=== PATIENT | male | born 1965 | race Caucasian/White ===

== ENCOUNTER 2020-04-25 11:32 | Inpatient (IN) ==
[2020-04-28] MEDS ORDERED: SOD CHLORIDE IV SCH (01:30)
[2020-04-28] MEDS ORDERED: VANCOMYCIN IV SCH (01:30)
[2020-04-28] MEDS ORDERED: [UNRECOGNIZED DRUG - OTHER] IV SCH (01:30)
[2020-04-28] MEDS ORDERED: SODIUM CHLORIDE 0.9% IVPB SCH (04:00)
[2020-04-28] MEDS ORDERED: VANCOMYCIN IVPB SCH (04:00)
[2020-04-28 07:15] LABS: Basophils # 0.1 K/mcL (0.0-0.2); Basophils % 0.5 %; Eosinophils # 0.8 K/mcL (0.0-0.6); Eosinophils % 7.1 %; Hematocrit 34.6 % (37.5-50.1); Hemoglobin 10.8 g/dL (12.9-16.9); Immature Granulocytes % 0.5 % (0-4); Lymphocytes # 1.4 K/mcL (0.6-4.6); Lymphocytes % 12.5 %; Mean Corpuscular HGB Conc 31.2 g/dL (31.6-35.5); Mean Corpuscular Hemoglobin 26.9 pg (28.0-33.3); Mean Corpuscular Volume 86.3 fL (83.0-100.0); Mean Platelet Volume 10.6 fL (9.4-12.4); Monocytes # 0.6 K/mcL (0.0-1.3); Monocytes % 5.8 %; Neutrophils # 7.9 K/mcL (1.6-8.9); Platelet Count 202 K/mcL (140-400); Red Blood Count 4.01 M/mcL (4.19-5.50); Red Cell Distribution Width 16.5 % (11.5-14.5); Segmented Neutrophils % 73.6 %; White Blood Count 10.8 K/mcL (4.3-11.1)
[2020-04-28 07:28] LABS: BUN/Creatinine Ratio 18 (6-26); Blood Urea Nitrogen 12 mg/dL (6-20); Carbon Dioxide 28 mEq/L (23-29); Chloride 103 mEq/L (98-107); Glucose 105 mg/dL (70-105); Osmolality,Calculated 284 (280-300); Potassium 3.3 mEq/L (3.5-5.1); Sodium 137 mEq/L (136-145); eGFR For African Americans > 60 (> 60); eGFR For Non-African Americans > 60 (> 60)
[2020-04-28] MEDS: amLODIPine 5 MG TABLET PO SCH (09:22)
[2020-04-28] MEDS ORDERED: Sennosides/Docusate Sodium TABLET PO PRN (10:55)
[2020-04-28] MEDS: Gabapentin 300 MG CAPSULE PO SCH ×2 (14:52→20:19)
[2020-04-28] MEDS: Vancomycin 1,750 MG/517.5 ML IV.SOLN IVPB SCH (16:00)
[2020-04-28] MEDS ORDERED: Saliva Stimulant 44.3ml BOTTLE PO PRN (16:03)
[2020-04-28] MEDS ORDERED: Ipratropium/Albuterol Neb 3 ML IH PRN (16:05)
[2020-04-29] MEDS: Vancomycin 1,750 MG/517.5 ML IV.SOLN IVPB SCH ×2 (04:13→16:01)
[2020-04-29 04:49] LABS: Hematocrit 34.1 % (37.5-50.1); Hemoglobin 10.9 g/dL (12.9-16.9); Mean Corpuscular Hemoglobin 27.7 pg (28.0-33.3); Mean Corpuscular Volume 86.8 fL (83.0-100.0); Platelet Count 187 K/mcL (140-400); Red Blood Count 3.93 M/mcL (4.19-5.50); Red Cell Distribution Width 16.5 % (11.5-14.5); White Blood Count 10.9 K/mcL (4.3-11.1)
[2020-04-29] MEDS: *HR* Enoxaparin 40 MG/0.4 ML SYRINGE SQ SCH (05:04)
[2020-04-29] MEDS ORDERED: *HR* Enoxaparin 30 MG/0.3 ML SYRINGE SQ SCH (06:00)
[2020-04-29 07:00] LABS: Alanine Aminotransferase 27 Units/L (7-52); Albumin 2.6 g/dL (3.5-5.7); Albumin/Globulin Ratio 0.9 (1.1-2.2); Alkaline Phosphatase 68 Units/L (34-104); Aspartate Amino Transferase 11 Units/L (13-39); BUN/Creatinine Ratio 17 (6-26); Bilirubin,Total 0.7 mg/dL (0.3-1.0); Blood Urea Nitrogen 10 mg/dL (6-20); Calcium 8.1 mg/dL (8.6-10.3); Carbon Dioxide 27 mEq/L (23-29); Chloride 103 mEq/L (98-107); Globulin 2.8 g/dL (2.4-3.5); Glucose 104 mg/dL (70-105); Magnesium 1.8 mg/dL (1.6-2.6); Osmolality,Calculated 285 (280-300); Phosphorous 3.4 mg/dL (2.7-4.5); Potassium 3.8 mEq/L (3.5-5.1); Sodium 138 mEq/L (136-145); Total Protein 5.4 g/dL (6.4-8.9); eGFR For African Americans > 60 (> 60); eGFR For Non-African Americans > 60 (> 60)
[2020-04-29] MEDS: amLODIPine 5 MG TABLET PO SCH (09:34)
[2020-04-29] MEDS: Gabapentin 300 MG CAPSULE PO SCH ×3 (09:34→20:51)
[2020-04-29 09:48] LABS: % Iron Saturation 10 % (20-55); Iron 17 mcg/dL (65-175); Transferrin 118 mg/dL (203-362)
[2020-04-29 13:44] LABS: Vitamin B12 239 pg/mL (250-1100)
[2020-04-29 13:48] LABS: Vitamin D 25 Hydroxy 12 ng/mL (30-80)
[2020-04-30] MEDS: Vancomycin 1,750 MG/517.5 ML IV.SOLN IVPB SCH ×2 (04:02→15:43)
[2020-04-30] MEDS: *HR* Enoxaparin 40 MG/0.4 ML SYRINGE SQ SCH (06:24)
[2020-04-30] MEDS: Gabapentin 300 MG CAPSULE PO SCH ×3 (08:44→20:05)
[2020-04-30] MEDS: amLODIPine 5 MG TABLET PO SCH (08:44)
[2020-04-30 13:35] LABS: Hematocrit RBC Folate 34.1 %
[2020-05-01] MEDS: Vancomycin 1,750 MG/517.5 ML IV.SOLN IVPB SCH ×2 (03:08→16:10)
[2020-05-01] MEDS: *HR* Enoxaparin 40 MG/0.4 ML SYRINGE SQ SCH (05:26)
[2020-05-01] MEDS: amLODIPine 5 MG TABLET PO SCH (08:26)
[2020-05-01] MEDS: Gabapentin 300 MG CAPSULE PO SCH ×3 (08:26→19:56)
[2020-05-01] MEDS: Acetaminophen 325 MG TABLET PO PRN (19:56)
[2020-05-01] MEDS ORDERED: Melatonin 3 MG TABLET PO ONE (20:37)
[2020-05-02] MEDS: *HR* Enoxaparin 40 MG/0.4 ML SYRINGE SQ SCH (05:55)
[2020-05-02] MEDS: amLODIPine 5 MG TABLET PO SCH (08:56)
[2020-05-02] MEDS: Gabapentin 300 MG CAPSULE PO SCH ×3 (08:56→19:46)
[2020-05-02] MEDS: Acetaminophen 325 MG TABLET PO PRN (19:41)
[2020-05-03] MEDS: *HR* Enoxaparin 40 MG/0.4 ML SYRINGE SQ SCH (04:50)
[2020-05-03] MEDS: amLODIPine 5 MG TABLET PO SCH (09:35)
[2020-05-03] MEDS: Gabapentin 300 MG CAPSULE PO SCH ×3 (09:35→20:29)
[2020-05-03] MEDS: Acetaminophen 325 MG TABLET PO PRN ×2 (13:00→20:29)
[2020-05-03] MEDS: Furosemide 40 MG TABLET PO SCH (17:23)
[2020-05-03] MEDS: Chlorhexidine Rinse 15 ML MOUTHWASH MM SCH ×2 (17:52→20:31)
[2020-05-04] MEDS: Acetaminophen 325 MG TABLET PO PRN ×2 (04:57→20:08)
[2020-05-04] MEDS: *HR* Enoxaparin 40 MG/0.4 ML SYRINGE SQ SCH (06:13)
[2020-05-04] MEDS: Furosemide 40 MG TABLET PO SCH (09:47)
[2020-05-04] MEDS: amLODIPine 5 MG TABLET PO SCH (09:47)
[2020-05-04] MEDS: Chlorhexidine Rinse 15 ML MOUTHWASH MM SCH ×2 (09:47→20:08)
[2020-05-04] MEDS: Gabapentin 300 MG CAPSULE PO SCH ×3 (09:47→20:08)
[2020-05-05] MEDS: *HR* Enoxaparin 40 MG/0.4 ML SYRINGE SQ SCH (05:55)
[2020-05-05 07:33] VITALS: BP 125/72
[2020-05-05] MEDS: Furosemide 40 MG TABLET PO SCH (10:16)
[2020-05-05] MEDS: Gabapentin 300 MG CAPSULE PO SCH (10:16)
[2020-05-05] MEDS: Chlorhexidine Rinse 15 ML MOUTHWASH MM SCH (10:16)
[2020-05-05] MEDS: amLODIPine 5 MG TABLET PO SCH (10:16)
== END 2020-05-05 14:52 | disposition home or self-care (01) | DRG 945 ==
LOC: INPPIK 04-28 02:27
PROVIDERS: ADMIT Family Medicine; ATTEND Family Medicine

== ENCOUNTER 2020-12-17 23:23 | Inpatient (IN) ==
[2020-12-18] MEDS ORDERED: Acetaminophen 325 MG TABLET PO PRN (14:26)
[2020-12-18] MEDS ORDERED: Ondansetron ODT 4 MG TAB.RAPDIS SL PRN (14:26)
[2020-12-18] MEDS ORDERED: Ipratropium/Albuterol Neb 3 ML IH PRN (14:31)
[2020-12-18] MEDS: *HR* OxyCODONE Immed Rel 5 MG TABLET PO PRN (15:57)
[2020-12-18] MEDS: Gabapentin 300 MG CAPSULE PO SCH ×2 (15:58→21:37)
[2020-12-18] MEDS: Bumetanide 1 MG TABLET PO SCH (15:58)
[2020-12-18] MEDS: Sennosides/Docusate Sodium TABLET PO SCH (21:37)
[2020-12-18] MEDS: Famotidine 20 MG TABLET PO SCH (21:37)
[2020-12-18] MEDS: *HR* Heparin 5,000 UNIT/ML VIAL SQ SCH (21:48)
[2020-12-19] MEDS: *HR* Heparin 5,000 UNIT/ML VIAL SQ SCH ×3 (05:57→20:58)
[2020-12-19 06:00] LABS: Basophils # 0.1 K/mcL (0.0-0.2); Eosinophils # 0.4 K/mcL (0.0-0.6); Eosinophils % 2.9 %; Hemoglobin 15.1 g/dL (12.9-16.9); Lymphocytes % 22.1 %; Mean Corpuscular HGB Conc 32.1 g/dL (31.6-35.5); Mean Corpuscular Volume 87.2 fL (83.0-100.0); Mean Platelet Volume 10.7 fL (9.4-12.4); Monocytes % 8.1 %; Neutrophils # 7.9 K/mcL (1.6-8.9); Platelet Count 305 K/mcL (140-400); Red Blood Count 5.39 M/mcL (4.19-5.50); Red Cell Distribution Width 17.2 % (11.5-14.5); Segmented Neutrophils % 63.9 %; White Blood Count 12.4 K/mcL (4.3-11.1)
[2020-12-19 06:04] LABS: Lymphocytes # 2.7 K/mcL (0.6-4.6)
[2020-12-19 06:45] LABS: BUN/Creatinine Ratio 22 (6-26); Blood Urea Nitrogen 17 mg/dL (6-20); Calcium 9.5 mg/dL (8.6-10.3); Carbon Dioxide 27 mEq/L (23-29); Chloride 102 mEq/L (98-107); Glucose 100 mg/dL (70-105); Osmolality,Calculated 288 (280-300); Potassium 4.3 mEq/L (3.5-5.1); Sodium 138 mEq/L (136-145); eGFR For African Americans > 60 (> 60); eGFR For Non-African Americans > 60 (> 60)
[2020-12-19] MEDS: *HR* OxyCODONE Immed Rel 5 MG TABLET PO PRN ×3 (08:43→20:58)
[2020-12-19] MEDS: Sennosides/Docusate Sodium TABLET PO SCH ×2 (08:44→20:57)
[2020-12-19] MEDS: amLODIPine 5 MG TABLET PO SCH (08:44)
[2020-12-19] MEDS: Gabapentin 300 MG CAPSULE PO SCH ×3 (08:44→20:57)
[2020-12-19] MEDS: Bumetanide 1 MG TABLET PO SCH ×2 (08:45→16:18)
[2020-12-19] MEDS: Famotidine 20 MG TABLET PO SCH ×2 (08:45→20:58)
[2020-12-20] MEDS: *HR* OxyCODONE Immed Rel 5 MG TABLET PO PRN ×4 (06:06→23:34)
[2020-12-20] MEDS: *HR* Heparin 5,000 UNIT/ML VIAL SQ SCH ×3 (06:06→22:01)
[2020-12-20] MEDS: Famotidine 20 MG TABLET PO SCH ×2 (08:22→22:00)
[2020-12-20] MEDS: Sennosides/Docusate Sodium TABLET PO SCH ×2 (08:22→22:00)
[2020-12-20] MEDS: Gabapentin 300 MG CAPSULE PO SCH ×3 (08:22→22:00)
[2020-12-20] MEDS: Bumetanide 1 MG TABLET PO SCH ×2 (08:22→16:44)
[2020-12-20] MEDS: amLODIPine 5 MG TABLET PO SCH (08:23)
[2020-12-21] MEDS: *HR* Heparin 5,000 UNIT/ML VIAL SQ SCH ×3 (05:00→21:17)
[2020-12-21] MEDS: *HR* OxyCODONE Immed Rel 5 MG TABLET PO PRN ×2 (05:00→22:52)
[2020-12-21] MEDS: Sennosides/Docusate Sodium TABLET PO SCH ×2 (08:22→21:17)
[2020-12-21] MEDS: amLODIPine 5 MG TABLET PO SCH (08:24)
[2020-12-21] MEDS: Famotidine 20 MG TABLET PO SCH ×2 (08:24→21:16)
[2020-12-21] MEDS: Bumetanide 1 MG TABLET PO SCH (08:24)
[2020-12-21] MEDS: Gabapentin 300 MG CAPSULE PO SCH ×3 (08:25→21:17)
[2020-12-21] MEDS ORDERED: 0.9 % Sodium Chloride 500 ML IVC ONE (13:57)
[2020-12-22] MEDS: Acetaminophen 325 MG TABLET PO PRN ×2 (02:11→18:35)
[2020-12-22] MEDS: *HR* OxyCODONE Immed Rel 5 MG TABLET PO PRN ×4 (03:29→20:50)
[2020-12-22] MEDS: *HR* Heparin 5,000 UNIT/ML VIAL SQ SCH ×3 (06:15→20:50)
[2020-12-22] MEDS: Famotidine 20 MG TABLET PO SCH ×2 (10:18→20:49)
[2020-12-22] MEDS: Sennosides/Docusate Sodium TABLET PO SCH ×2 (10:18→20:49)
[2020-12-22] MEDS: Gabapentin 300 MG CAPSULE PO SCH ×3 (10:18→20:49)
[2020-12-22] MEDS: Bumetanide 1 MG TABLET PO SCH ×2 (10:18→16:21)
[2020-12-22] MEDS: amLODIPine 5 MG TABLET PO SCH (10:18)
[2020-12-23] MEDS: *HR* OxyCODONE Immed Rel 5 MG TABLET PO PRN ×5 (04:05→20:55)
[2020-12-23 05:28] LABS: Basophils # 0.1 K/mcL (0.0-0.2); Basophils % 0.9 %; Eosinophils # 0.4 K/mcL (0.0-0.6); Eosinophils % 3.8 %; Hematocrit 46.6 % (37.5-50.1); Hemoglobin 14.8 g/dL (12.9-16.9); Immature Granulocytes % 1.1 % (0-4); Lymphocytes # 2.9 K/mcL (0.6-4.6); Lymphocytes % 28.4 %; Mean Corpuscular HGB Conc 31.8 g/dL (31.6-35.5); Mean Corpuscular Hemoglobin 27.8 pg (28.0-33.3); Mean Corpuscular Volume 87.4 fL (83.0-100.0); Mean Platelet Volume 11.8 fL (9.4-12.4); Monocytes # 0.8 K/mcL (0.0-1.3); Monocytes % 8.4 %; Neutrophils # 5.8 K/mcL (1.6-8.9); Platelet Count 230 K/mcL (140-400); Red Blood Count 5.33 M/mcL (4.19-5.50); Segmented Neutrophils % 57.4 %
[2020-12-23] MEDS: *HR* Heparin 5,000 UNIT/ML VIAL SQ SCH ×3 (05:50→20:56)
[2020-12-23 05:56] LABS: BUN/Creatinine Ratio 28 (6-26); Blood Urea Nitrogen 31 mg/dL (6-20); Calcium 9.2 mg/dL (8.6-10.3); Carbon Dioxide 27 mEq/L (23-29); Chloride 101 mEq/L (98-107); Glucose 108 mg/dL (70-105); Osmolality,Calculated 295 (280-300); Potassium 3.4 mEq/L (3.5-5.1); Sodium 139 mEq/L (136-145); eGFR For African Americans > 60 (> 60); eGFR For Non-African Americans > 60 (> 60)
[2020-12-23] MEDS: Sennosides/Docusate Sodium TABLET PO SCH ×2 (07:41→20:57)
[2020-12-23] MEDS: Acetaminophen 325 MG TABLET PO PRN (07:41)
[2020-12-23] MEDS: Bumetanide 1 MG TABLET PO SCH ×2 (07:42→16:17)
[2020-12-23] MEDS: Famotidine 20 MG TABLET PO SCH ×2 (07:42→20:56)
[2020-12-23] MEDS: amLODIPine 5 MG TABLET PO SCH (07:42)
[2020-12-23] MEDS: Gabapentin 300 MG CAPSULE PO SCH ×3 (07:42→20:56)
[2020-12-23] MEDS ORDERED: E-Z-HD (BARIUM SULF) SUSPENSION PO ONE (10:18)
[2020-12-23] MEDS ORDERED: E-Z-PAQUE (BARIUM SULF) SUSP 1 BOTTLE PO ONE (10:18)
[2020-12-23 17:19] LABS: Bilirubin,Urine Negative (Negative); Blood,Urine Negative (Negative); Clarity,Urine Turbid (Clear); Color,Urine Yellow (Yellow); Glucose,Urine (UA) Normal (Normal); Ketones,Urine Negative (Negative); Leukocyte Esterase,Urine Large (Negative); Nitrite,Urine Positive (Negative); PH,Urine >=9.0 pH Units (5.0-8.0); Protein,Urine 100 mg/dL (Neg-Trace); Urobilinogen,Urine Normal (Normal)
[2020-12-23 17:27] LABS: Amorphous Sediment,Urine Many per hpf (None-Few); Bacteria,Urine Present per hpf (None-Few); Triple Phosphate Crystal,Urine Present per hpf; WBC,Urine Present per hpf (0-3)
[2020-12-23] MEDS: Cefdinir 300 MG CAPSULE PO SCH (20:56)
[2020-12-24] MEDS: *HR* OxyCODONE Immed Rel 5 MG TABLET PO PRN ×4 (04:51→21:21)
[2020-12-24] MEDS: *HR* Heparin 5,000 UNIT/ML VIAL SQ SCH ×3 (06:00→21:22)
[2020-12-24] MEDS: Gabapentin 300 MG CAPSULE PO SCH ×3 (08:43→21:21)
[2020-12-24] MEDS: Cefdinir 300 MG CAPSULE PO SCH ×2 (08:44→21:21)
[2020-12-24] MEDS: amLODIPine 5 MG TABLET PO SCH (08:44)
[2020-12-24] MEDS: Famotidine 20 MG TABLET PO SCH ×2 (08:44→21:21)
[2020-12-24] MEDS: Bumetanide 1 MG TABLET PO SCH ×2 (08:44→15:57)
[2020-12-24] MEDS: Sennosides/Docusate Sodium TABLET PO SCH ×2 (08:44→21:21)
[2020-12-25] MEDS: Acetaminophen 325 MG TABLET PO PRN (00:07)
[2020-12-25] MEDS: *HR* OxyCODONE Immed Rel 5 MG TABLET PO PRN ×4 (05:57→19:48)
[2020-12-25] MEDS: *HR* Heparin 5,000 UNIT/ML VIAL SQ SCH ×3 (05:57→20:01)
[2020-12-25] MEDS: Bumetanide 1 MG TABLET PO SCH ×2 (10:04→17:09)
[2020-12-25] MEDS: Famotidine 20 MG TABLET PO SCH ×2 (10:04→19:48)
[2020-12-25] MEDS: Gabapentin 300 MG CAPSULE PO SCH ×3 (10:04→19:47)
[2020-12-25] MEDS: Cefdinir 300 MG CAPSULE PO SCH ×2 (10:04→19:48)
[2020-12-25] MEDS: Sennosides/Docusate Sodium TABLET PO SCH ×2 (10:04→19:48)
[2020-12-25] MEDS: amLODIPine 5 MG TABLET PO SCH (10:05)
[2020-12-25] MEDS ORDERED: 0.9 % Sodium Chloride 500 ML IV ONE (22:22)
[2020-12-26] MEDS: *HR* Heparin 5,000 UNIT/ML VIAL SQ SCH ×3 (06:39→20:58)
[2020-12-26] MEDS: *HR* OxyCODONE Immed Rel 5 MG TABLET PO PRN ×3 (06:56→20:57)
[2020-12-26] MEDS: Bumetanide 1 MG TABLET PO SCH ×2 (09:47→11:32)
[2020-12-26] MEDS: Cefdinir 300 MG CAPSULE PO SCH ×3 (09:47→20:57)
[2020-12-26] MEDS: Gabapentin 300 MG CAPSULE PO SCH ×4 (09:47→20:56)
[2020-12-26] MEDS: Sennosides/Docusate Sodium TABLET PO SCH ×3 (09:48→20:57)
[2020-12-26] MEDS: Famotidine 20 MG TABLET PO SCH ×3 (09:48→20:57)
[2020-12-26] MEDS: amLODIPine 5 MG TABLET PO SCH ×2 (09:48→11:33)
[2020-12-27] MEDS: *HR* OxyCODONE Immed Rel 5 MG TABLET PO PRN ×5 (01:02→21:20)
[2020-12-27] MEDS: *HR* Heparin 5,000 UNIT/ML VIAL SQ SCH ×3 (05:15→21:20)
[2020-12-27] MEDS: Gabapentin 300 MG CAPSULE PO SCH ×3 (09:36→21:21)
[2020-12-27] MEDS: Cefdinir 300 MG CAPSULE PO SCH ×2 (09:37→21:20)
[2020-12-27] MEDS: Sennosides/Docusate Sodium TABLET PO SCH ×2 (09:37→21:20)
[2020-12-27] MEDS: Famotidine 20 MG TABLET PO SCH ×2 (09:37→21:21)
[2020-12-27] MEDS: Bumetanide 1 MG TABLET PO SCH ×2 (09:38→16:25)
[2020-12-27] MEDS: QUEtiapine Fumarate 25 MG TABLET PO SCH (21:21)
[2020-12-28] MEDS: *HR* Heparin 5,000 UNIT/ML VIAL SQ SCH ×3 (05:36→22:39)
[2020-12-28] MEDS: Cefdinir 300 MG CAPSULE PO SCH ×2 (08:58→22:39)
[2020-12-28] MEDS: Famotidine 20 MG TABLET PO SCH ×2 (08:58→22:39)
[2020-12-28] MEDS: Bumetanide 1 MG TABLET PO SCH ×2 (08:58→16:32)
[2020-12-28] MEDS: *HR* OxyCODONE Immed Rel 5 MG TABLET PO PRN ×3 (08:59→22:40)
[2020-12-28] MEDS: Gabapentin 300 MG CAPSULE PO SCH ×3 (08:59→22:40)
[2020-12-28] MEDS: Sennosides/Docusate Sodium TABLET PO SCH ×2 (08:59→22:40)
[2020-12-28 09:45] LABS: Basophils # 0.1 K/mcL (0.0-0.2); Basophils % 0.6 %; Eosinophils # 0.3 K/mcL (0.0-0.6); Eosinophils % 2.8 %; Hemoglobin 15.9 g/dL (12.9-16.9); Immature Granulocytes % 0.6 % (0-4); Lymphocytes # 2.5 K/mcL (0.6-4.6); Lymphocytes % 24.3 %; Mean Corpuscular HGB Conc 32.4 g/dL (31.6-35.5); Mean Corpuscular Hemoglobin 28.3 pg (28.0-33.3); Mean Corpuscular Volume 87.2 fL (83.0-100.0); Monocytes # 0.5 K/mcL (0.0-1.3); Monocytes % 4.5 %; Platelet Count 173 K/mcL (140-400); Red Blood Count 5.62 M/mcL (4.19-5.50); Red Cell Distribution Width 16.3 % (11.5-14.5); Segmented Neutrophils % 67.2 %; White Blood Count 10.4 K/mcL (4.3-11.1)
[2020-12-28 10:05] LABS: Alanine Aminotransferase 23 Units/L (7-52); Albumin/Globulin Ratio 1.3 (1.1-2.2); Alkaline Phosphatase 85 Units/L (34-104); Aspartate Amino Transferase 22 Units/L (13-39); BUN/Creatinine Ratio 25 (6-26); Blood Urea Nitrogen 24 mg/dL (6-20); Calcium 9.9 mg/dL (8.6-10.3); Carbon Dioxide 30 mEq/L (23-29); Chloride 97 mEq/L (98-107); Globulin 3.1 g/dL (2.4-3.5); Glucose 141 mg/dL (70-105); Osmolality,Calculated 292 (280-300); Potassium 3.4 mEq/L (3.5-5.1); Sodium 138 mEq/L (136-145); Total Protein 7.1 g/dL (6.4-8.9); eGFR For African Americans > 60 (> 60); eGFR For Non-African Americans > 60 (> 60)
[2020-12-28] MEDS: QUEtiapine Fumarate 25 MG TABLET PO SCH (22:40)
[2020-12-29] MEDS: *HR* Heparin 5,000 UNIT/ML VIAL SQ SCH ×3 (06:32→22:45)
[2020-12-29] MEDS: Sennosides/Docusate Sodium TABLET PO SCH ×2 (08:24→22:39)
[2020-12-29] MEDS: Famotidine 20 MG TABLET PO SCH ×2 (08:24→22:40)
[2020-12-29] MEDS: Gabapentin 300 MG CAPSULE PO SCH ×3 (08:25→22:38)
[2020-12-29] MEDS: Cefdinir 300 MG CAPSULE PO SCH ×2 (08:25→22:38)
[2020-12-29] MEDS: Bumetanide 1 MG TABLET PO SCH ×2 (08:25→16:53)
[2020-12-29] MEDS: QUEtiapine Fumarate 25 MG TABLET PO SCH (22:39)
[2020-12-30] MEDS: *HR* Heparin 5,000 UNIT/ML VIAL SQ SCH ×3 (06:47→21:15)
[2020-12-30] MEDS: Gabapentin 300 MG CAPSULE PO SCH ×3 (09:17→20:34)
[2020-12-30] MEDS: *HR* OxyCODONE Immed Rel 5 MG TABLET PO PRN ×3 (09:17→20:34)
[2020-12-30] MEDS: Cefdinir 300 MG CAPSULE PO SCH (09:17)
[2020-12-30] MEDS: Sennosides/Docusate Sodium TABLET PO SCH ×2 (09:18→20:34)
[2020-12-30] MEDS: Bumetanide 1 MG TABLET PO SCH ×2 (09:18→17:39)
[2020-12-30] MEDS: Famotidine 20 MG TABLET PO SCH ×2 (09:18→20:34)
[2020-12-30] MEDS: QUEtiapine Fumarate 25 MG TABLET PO SCH (20:34)
[2020-12-31] MEDS: *HR* OxyCODONE Immed Rel 5 MG TABLET PO PRN ×4 (00:33→19:38)
[2020-12-31] MEDS: *HR* Heparin 5,000 UNIT/ML VIAL SQ SCH ×3 (06:36→19:37)
[2020-12-31] MEDS: Sennosides/Docusate Sodium TABLET PO SCH ×2 (08:33→19:38)
[2020-12-31] MEDS: Famotidine 20 MG TABLET PO SCH ×2 (08:33→19:37)
[2020-12-31] MEDS: Bumetanide 1 MG TABLET PO SCH ×2 (08:33→17:02)
[2020-12-31] MEDS: Gabapentin 300 MG CAPSULE PO SCH ×3 (08:33→19:38)
[2020-12-31] MEDS: QUEtiapine Fumarate 25 MG TABLET PO SCH (19:37)
[2021-01-01] MEDS: *HR* OxyCODONE Immed Rel 5 MG TABLET PO PRN ×2 (05:09→13:53)
[2021-01-01] MEDS: *HR* Heparin 5,000 UNIT/ML VIAL SQ SCH ×3 (05:09→19:52)
[2021-01-01] MEDS: Gabapentin 300 MG CAPSULE PO SCH ×3 (09:53→19:52)
[2021-01-01] MEDS: Bumetanide 1 MG TABLET PO SCH ×2 (09:53→17:48)
[2021-01-01] MEDS: Sennosides/Docusate Sodium TABLET PO SCH ×2 (09:54→19:52)
[2021-01-01] MEDS: Famotidine 20 MG TABLET PO SCH ×2 (09:54→19:51)
[2021-01-01] MEDS: QUEtiapine Fumarate 25 MG TABLET PO SCH (19:52)
[2021-01-02] MEDS: *HR* OxyCODONE Immed Rel 5 MG TABLET PO PRN ×3 (06:10→23:33)
[2021-01-02] MEDS: *HR* Heparin 5,000 UNIT/ML VIAL SQ SCH ×3 (06:11→19:49)
[2021-01-02] MEDS: Gabapentin 300 MG CAPSULE PO SCH ×3 (09:41→19:48)
[2021-01-02] MEDS: Bumetanide 1 MG TABLET PO SCH ×2 (09:41→16:32)
[2021-01-02] MEDS: Sennosides/Docusate Sodium TABLET PO SCH ×2 (09:42→19:49)
[2021-01-02] MEDS: Famotidine 20 MG TABLET PO SCH ×2 (09:42→19:48)
[2021-01-02] MEDS: QUEtiapine Fumarate 25 MG TABLET PO SCH (19:49)
[2021-01-03] MEDS: *HR* Heparin 5,000 UNIT/ML VIAL SQ SCH ×3 (06:33→21:44)
[2021-01-03] MEDS: *HR* OxyCODONE Immed Rel 5 MG TABLET PO PRN ×3 (08:53→21:44)
[2021-01-03] MEDS: Famotidine 20 MG TABLET PO SCH ×2 (08:53→21:44)
[2021-01-03] MEDS: Sennosides/Docusate Sodium TABLET PO SCH ×2 (08:53→21:45)
[2021-01-03] MEDS: Gabapentin 300 MG CAPSULE PO SCH ×3 (08:53→21:44)
[2021-01-03] MEDS: Bumetanide 1 MG TABLET PO SCH ×2 (08:53→17:04)
[2021-01-03 10:15] LABS: Hemoglobin 15.3 g/dL (12.9-16.9); Mean Corpuscular HGB Conc 32.6 g/dL (31.6-35.5); Mean Corpuscular Hemoglobin 28.4 pg (28.0-33.3); Mean Corpuscular Volume 87.4 fL (83.0-100.0); Mean Platelet Volume 10.8 fL (9.4-12.4); Platelet Count 213 K/mcL (140-400); Red Blood Count 5.38 M/mcL (4.19-5.50); Red Cell Distribution Width 15.4 % (11.5-14.5); White Blood Count 9.9 K/mcL (4.3-11.1)
[2021-01-03 10:30] LABS: BUN/Creatinine Ratio 20 (6-26); Blood Urea Nitrogen 19 mg/dL (6-20); Calcium 9.4 mg/dL (8.6-10.3); Carbon Dioxide 35 mEq/L (23-29); Chloride 94 mEq/L (98-107); Glucose 112 mg/dL (70-105); Osmolality,Calculated 287 (280-300); Potassium 3.1 mEq/L (3.5-5.1); Sodium 137 mEq/L (136-145); eGFR For African Americans > 60 (> 60); eGFR For Non-African Americans > 60 (> 60)
[2021-01-03] MEDS: QUEtiapine Fumarate 25 MG TABLET PO SCH (21:44)
[2021-01-04] MEDS: *HR* OxyCODONE Immed Rel 5 MG TABLET PO PRN ×5 (01:45→21:06)
[2021-01-04] MEDS: *HR* Heparin 5,000 UNIT/ML VIAL SQ SCH ×3 (05:54→20:51)
[2021-01-04] MEDS: Gabapentin 300 MG CAPSULE PO SCH ×3 (08:30→20:48)
[2021-01-04] MEDS: Bumetanide 1 MG TABLET PO SCH ×2 (08:30→17:02)
[2021-01-04] MEDS: Famotidine 20 MG TABLET PO SCH ×2 (08:30→20:49)
[2021-01-04] MEDS: Sennosides/Docusate Sodium TABLET PO SCH ×2 (08:30→20:49)
[2021-01-04] MEDS: QUEtiapine Fumarate 25 MG TABLET PO SCH (20:50)
[2021-01-05] MEDS: *HR* Heparin 5,000 UNIT/ML VIAL SQ SCH ×3 (06:07→22:06)
[2021-01-05] MEDS: Famotidine 20 MG TABLET PO SCH ×2 (08:13→22:05)
[2021-01-05] MEDS: Bumetanide 1 MG TABLET PO SCH ×2 (08:13→16:40)
[2021-01-05] MEDS: Sennosides/Docusate Sodium TABLET PO SCH ×2 (08:13→22:05)
[2021-01-05] MEDS: Gabapentin 300 MG CAPSULE PO SCH ×3 (08:13→22:04)
[2021-01-05] MEDS: *HR* OxyCODONE Immed Rel 5 MG TABLET PO PRN ×3 (12:08→22:03)
[2021-01-05] MEDS: QUEtiapine Fumarate 25 MG TABLET PO SCH (22:04)
[2021-01-06] MEDS: *HR* Heparin 5,000 UNIT/ML VIAL SQ SCH ×3 (06:08→23:28)
[2021-01-06] MEDS: Bumetanide 1 MG TABLET PO SCH ×2 (08:01→16:13)
[2021-01-06] MEDS: Sennosides/Docusate Sodium TABLET PO SCH ×2 (08:01→20:10)
[2021-01-06] MEDS: Gabapentin 300 MG CAPSULE PO SCH ×3 (08:01→20:09)
[2021-01-06] MEDS: Famotidine 20 MG TABLET PO SCH ×2 (08:02→20:11)
[2021-01-06] MEDS: *HR* OxyCODONE Immed Rel 5 MG TABLET PO PRN ×3 (08:24→20:10)
[2021-01-06] MEDS: QUEtiapine Fumarate 25 MG TABLET PO SCH (20:09)
[2021-01-06] MEDS ORDERED: *HR* LORazepam 1 MG TABLET PO ONE (22:59)
[2021-01-07] MEDS: *HR* Heparin 5,000 UNIT/ML VIAL SQ SCH ×3 (06:54→22:25)
[2021-01-07] MEDS: *HR* OxyCODONE Immed Rel 5 MG TABLET PO PRN ×2 (09:18→21:10)
[2021-01-07] MEDS: Gabapentin 300 MG CAPSULE PO SCH ×3 (09:19→21:10)
[2021-01-07] MEDS: Bumetanide 1 MG TABLET PO SCH ×2 (09:19→17:10)
[2021-01-07] MEDS: Famotidine 20 MG TABLET PO SCH ×2 (09:19→21:10)
[2021-01-07] MEDS: Sennosides/Docusate Sodium TABLET PO SCH ×2 (09:19→21:10)
[2021-01-07] MEDS: QUEtiapine Fumarate 25 MG TABLET PO SCH (21:10)
[2021-01-08] MEDS: *HR* Heparin 5,000 UNIT/ML VIAL SQ SCH ×3 (05:19→21:46)
[2021-01-08] MEDS: *HR* OxyCODONE Immed Rel 5 MG TABLET PO PRN ×3 (05:19→21:47)
[2021-01-08] MEDS: Famotidine 20 MG TABLET PO SCH ×2 (09:39→21:46)
[2021-01-08] MEDS: Gabapentin 300 MG CAPSULE PO SCH ×3 (09:40→21:46)
[2021-01-08] MEDS: Bumetanide 1 MG TABLET PO SCH ×2 (09:40→16:44)
[2021-01-08] MEDS: Sennosides/Docusate Sodium TABLET PO SCH ×2 (09:40→21:46)
[2021-01-08] MEDS: QUEtiapine Fumarate 25 MG TABLET PO SCH (21:47)
[2021-01-09] MEDS: *HR* OxyCODONE Immed Rel 5 MG TABLET PO PRN (05:52)
[2021-01-09] MEDS: *HR* Heparin 5,000 UNIT/ML VIAL SQ SCH ×3 (05:53→22:19)
[2021-01-09] MEDS: Sennosides/Docusate Sodium TABLET PO SCH ×2 (09:42→22:19)
[2021-01-09] MEDS: Bumetanide 1 MG TABLET PO SCH ×2 (09:42→16:56)
[2021-01-09] MEDS: Gabapentin 300 MG CAPSULE PO SCH ×3 (09:43→22:19)
[2021-01-09] MEDS: Famotidine 20 MG TABLET PO SCH ×2 (09:43→22:18)
[2021-01-09] MEDS: *HR* LORazepam 0.5 MG TABLET PO PRN (09:43)
[2021-01-09 11:21] LABS: ABG Base Excess 3 mEq/L (-2 to 3); ABG HCO3 27 mEq/L (21-27); ABG Oxygen Saturation 95 % (95-98); ABG PCO2 39 mmHg (35-45); ABG PH 7.45 pH Units (7.32-7.45); ABG PO2 71 mmHg (85-104); ABG TCO2 28 mEq/L (20-26)
[2021-01-09 11:36] LABS: Basophils # 0.1 K/mcL (0.0-0.2); Basophils % 0.9 %; Eosinophils # 0.4 K/mcL (0.0-0.6); Eosinophils % 3.8 %; Hematocrit 42.9 % (37.5-50.1); Hemoglobin 14.3 g/dL (12.9-16.9); Immature Granulocytes % 1.1 % (0-4); Lymphocytes # 2.5 K/mcL (0.6-4.6); Mean Corpuscular HGB Conc 33.3 g/dL (31.6-35.5); Mean Corpuscular Hemoglobin 28.5 pg (28.0-33.3); Mean Corpuscular Volume 85.5 fL (83.0-100.0); Mean Platelet Volume 10.3 fL (9.4-12.4); Monocytes % 8.8 %; Neutrophils # 6.8 K/mcL (1.6-8.9); Platelet Count 322 K/mcL (140-400); Red Blood Count 5.02 M/mcL (4.19-5.50); Red Cell Distribution Width 14.6 % (11.5-14.5); Segmented Neutrophils % 62.4 %; White Blood Count 10.8 K/mcL (4.3-11.1)
[2021-01-09 12:04] LABS: INR 1.2; Prothrombin Time 14.3 Seconds (9.4-12.1)
[2021-01-09 12:16] LABS: Alanine Aminotransferase 13 Units/L (7-52); Albumin 3.5 g/dL (3.5-5.7); Albumin/Globulin Ratio 1.3 (1.1-2.2); Alkaline Phosphatase 74 Units/L (34-104); Aspartate Amino Transferase 16 Units/L (13-39); BUN/Creatinine Ratio 13 (6-26); Bilirubin,Total 0.6 mg/dL (0.3-1.0); Blood Urea Nitrogen 10 mg/dL (6-20); Carbon Dioxide 27 mEq/L (23-29); Chloride 96 mEq/L (98-107); Globulin 2.6 g/dL (2.4-3.5); Glucose 128 mg/dL (70-105); Osmolality,Calculated 279 (280-300); Potassium 2.8 mEq/L (3.5-5.1); Sodium 134 mEq/L (136-145); Total Protein 6.1 g/dL (6.4-8.9); eGFR For African Americans > 60 (> 60); eGFR For Non-African Americans > 60 (> 60)
[2021-01-09 17:07] LABS: Bilirubin,Urine Negative (Negative); Blood,Urine Trace-intact (Negative); Clarity,Urine Clear (Clear); Color,Urine Yellow (Yellow); Glucose,Urine (UA) Normal (Normal); Ketones,Urine Negative (Negative); Leukocyte Esterase,Urine Moderate (Negative); Nitrite,Urine Negative (Negative); Protein,Urine Negative (Neg-Trace); Urobilinogen,Urine Normal (Normal)
[2021-01-09 17:15] LABS: Calcium Oxalate Crystals,Urine Present per hpf; RBC,Urine 0-3 per hpf (0-3); WBC,Urine 0-3 per hpf (0-3)
[2021-01-09] MEDS: Acetaminophen 325 MG TABLET PO PRN (22:18)
[2021-01-09] MEDS: QUEtiapine Fumarate 25 MG TABLET PO SCH (22:19)
[2021-01-10] MEDS: *HR* Heparin 5,000 UNIT/ML VIAL SQ SCH ×3 (06:36→21:12)
[2021-01-10] MEDS: *HR* OxyCODONE Immed Rel 5 MG TABLET PO PRN ×2 (10:43→21:11)
[2021-01-10] MEDS: Famotidine 20 MG TABLET PO SCH ×2 (10:43→21:12)
[2021-01-10] MEDS: Gabapentin 300 MG CAPSULE PO SCH ×3 (10:44→21:11)
[2021-01-10] MEDS: *HR* LORazepam 0.5 MG TABLET PO PRN (10:44)
[2021-01-10] MEDS: Bumetanide 1 MG TABLET PO SCH ×2 (10:45→15:56)
[2021-01-10] MEDS: Sennosides/Docusate Sodium TABLET PO SCH ×2 (10:50→21:12)
[2021-01-10] MEDS: QUEtiapine Fumarate 25 MG TABLET PO SCH (21:12)
[2021-01-11] MEDS: *HR* LORazepam 0.5 MG TABLET PO PRN ×3 (03:52→22:07)
[2021-01-11] MEDS: *HR* OxyCODONE Immed Rel 5 MG TABLET PO PRN ×4 (03:52→22:07)
[2021-01-11] MEDS: *HR* Heparin 5,000 UNIT/ML VIAL SQ SCH ×3 (06:22→22:03)
[2021-01-11] MEDS ORDERED: Potassium Chloride Elixir 20 MEQ/15 ML UDC PO ONE (08:33)
[2021-01-11] MEDS: Sennosides/Docusate Sodium TABLET PO SCH ×2 (09:06→22:09)
[2021-01-11] MEDS: Gabapentin 300 MG CAPSULE PO SCH ×3 (09:06→22:07)
[2021-01-11] MEDS: Famotidine 20 MG TABLET PO SCH ×2 (09:06→22:07)
[2021-01-11] MEDS: Bumetanide 1 MG TABLET PO SCH ×2 (09:06→16:31)
[2021-01-11] MEDS ORDERED: cefTRIAXone 2,000 MG in Water for inj. (sterile) 20 ML IVP SCH (16:00)
[2021-01-11] MEDS: Neosporin OINT 1 APPL PACKET TP SCH (16:31)
[2021-01-11] MEDS: levoFLOXacin 750 MG TABLET PO SCH (16:44)
[2021-01-11] MEDS ORDERED: Cefdinir 300 MG CAPSULE PO SCH (21:00)
[2021-01-11] MEDS: QUEtiapine Fumarate 25 MG TABLET PO SCH (22:07)
[2021-01-12] MEDS: Neosporin OINT 1 APPL PACKET TP SCH ×2 (00:15→07:37)
[2021-01-12] MEDS: *HR* LORazepam 0.5 MG TABLET PO PRN ×2 (06:46→21:50)
[2021-01-12] MEDS: *HR* OxyCODONE Immed Rel 5 MG TABLET PO PRN ×2 (06:46→21:51)
[2021-01-12] MEDS: *HR* Heparin 5,000 UNIT/ML VIAL SQ SCH ×3 (06:47→21:53)
[2021-01-12] MEDS: Nystatin POWDER 30 GM BOTTLE TP SCH ×3 (06:49→21:53)
[2021-01-12] MEDS: levoFLOXacin 750 MG TABLET PO SCH (07:36)
[2021-01-12] MEDS: Gabapentin 300 MG CAPSULE PO SCH ×3 (07:37→21:51)
[2021-01-12] MEDS: Bumetanide 1 MG TABLET PO SCH ×2 (07:37→15:23)
[2021-01-12] MEDS: Famotidine 20 MG TABLET PO SCH ×2 (07:37→21:52)
[2021-01-12] MEDS: Sennosides/Docusate Sodium TABLET PO SCH ×2 (07:39→21:51)
[2021-01-12] MEDS ORDERED: Neosporin OINT 15 GM TUBE TP SCH (08:15)
[2021-01-12 09:38] LABS: Basophils # 0.1 K/mcL (0.0-0.2); Basophils % 1.1 %; Eosinophils # 0.3 K/mcL (0.0-0.6); Eosinophils % 3.1 %; Hematocrit 46.4 % (37.5-50.1); Hemoglobin 15.6 g/dL (12.9-16.9); Immature Granulocytes % 1.7 % (0-4); Lymphocytes # 2.8 K/mcL (0.6-4.6); Lymphocytes % 26.2 %; Mean Corpuscular HGB Conc 33.6 g/dL (31.6-35.5); Mean Corpuscular Hemoglobin 28.4 pg (28.0-33.3); Mean Corpuscular Volume 84.5 fL (83.0-100.0); Mean Platelet Volume 10.2 fL (9.4-12.4); Monocytes # 0.8 K/mcL (0.0-1.3); Monocytes % 7.4 %; Neutrophils # 6.5 K/mcL (1.6-8.9); Platelet Count 353 K/mcL (140-400); Red Blood Count 5.49 M/mcL (4.19-5.50); Red Cell Distribution Width 14.4 % (11.5-14.5); Segmented Neutrophils % 60.5 %; White Blood Count 10.7 K/mcL (4.3-11.1)
[2021-01-12 10:06] LABS: BUN/Creatinine Ratio 13 (6-26); Blood Urea Nitrogen 10 mg/dL (6-20); Calcium 9.6 mg/dL (8.6-10.3); Carbon Dioxide 28 mEq/L (23-29); Chloride 94 mEq/L (98-107); Glucose 105 mg/dL (70-105); Osmolality,Calculated 277 (280-300); Potassium 3.1 mEq/L (3.5-5.1); Sodium 134 mEq/L (136-145); eGFR For African Americans > 60 (> 60); eGFR For Non-African Americans > 60 (> 60)
[2021-01-12] MEDS: Neosporin OINT 15 GM TUBE TP SCH ×2 (17:55→21:54)
[2021-01-12] MEDS: QUEtiapine Fumarate 25 MG TABLET PO SCH (21:50)
[2021-01-13] MEDS: *HR* Heparin 5,000 UNIT/ML VIAL SQ SCH ×3 (06:36→20:09)
[2021-01-13] MEDS: Sennosides/Docusate Sodium TABLET PO SCH ×2 (07:55→23:21)
[2021-01-13] MEDS: Famotidine 20 MG TABLET PO SCH ×2 (07:55→20:09)
[2021-01-13] MEDS: Gabapentin 300 MG CAPSULE PO SCH ×3 (07:55→20:09)
[2021-01-13] MEDS: levoFLOXacin 750 MG TABLET PO SCH (07:55)
[2021-01-13] MEDS: Bumetanide 1 MG TABLET PO SCH ×2 (07:55→16:17)
[2021-01-13] MEDS: Nystatin POWDER 30 GM BOTTLE TP SCH ×2 (07:58→21:25)
[2021-01-13] MEDS: Neosporin OINT 15 GM TUBE TP SCH ×2 (07:58→16:17)
[2021-01-13] MEDS: *HR* OxyCODONE Immed Rel 5 MG TABLET PO PRN ×3 (08:02→20:10)
[2021-01-13] MEDS: *HR* LORazepam 0.5 MG TABLET PO PRN (20:10)
[2021-01-13] MEDS: QUEtiapine Fumarate 25 MG TABLET PO SCH (20:10)
[2021-01-14] MEDS: Neosporin OINT 15 GM TUBE TP SCH ×4 (01:33→23:21)
[2021-01-14] MEDS: *HR* Heparin 5,000 UNIT/ML VIAL SQ SCH ×3 (05:54→21:15)
[2021-01-14] MEDS: *HR* OxyCODONE Immed Rel 5 MG TABLET PO PRN ×3 (06:01→21:15)
[2021-01-14] MEDS: *HR* LORazepam 0.5 MG TABLET PO PRN ×2 (06:01→14:03)
[2021-01-14] MEDS: Sennosides/Docusate Sodium TABLET PO SCH ×2 (08:38→21:15)
[2021-01-14] MEDS: levoFLOXacin 750 MG TABLET PO SCH (08:38)
[2021-01-14] MEDS: Gabapentin 300 MG CAPSULE PO SCH ×3 (08:38→21:15)
[2021-01-14] MEDS: Famotidine 20 MG TABLET PO SCH ×2 (08:38→21:15)
[2021-01-14] MEDS: Bumetanide 1 MG TABLET PO SCH ×2 (08:38→17:17)
[2021-01-14] MEDS: Nystatin POWDER 30 GM BOTTLE TP SCH ×2 (08:39→21:16)
[2021-01-14] MEDS: QUEtiapine Fumarate 25 MG TABLET PO SCH (21:15)
[2021-01-15] MEDS: *HR* OxyCODONE Immed Rel 5 MG TABLET PO PRN ×2 (02:20→20:57)
[2021-01-15] MEDS: *HR* LORazepam 0.5 MG TABLET PO PRN (02:20)
[2021-01-15] MEDS: *HR* Heparin 5,000 UNIT/ML VIAL SQ SCH ×3 (05:50→20:57)
[2021-01-15] MEDS: Bumetanide 1 MG TABLET PO SCH ×2 (09:18→16:48)
[2021-01-15] MEDS: Sennosides/Docusate Sodium TABLET PO SCH ×2 (09:18→20:57)
[2021-01-15] MEDS: Gabapentin 300 MG CAPSULE PO SCH ×3 (09:18→20:58)
[2021-01-15] MEDS: Famotidine 20 MG TABLET PO SCH ×2 (09:18→20:57)
[2021-01-15] MEDS: levoFLOXacin 750 MG TABLET PO SCH (09:18)
[2021-01-15] MEDS: Nystatin POWDER 30 GM BOTTLE TP SCH ×2 (09:19→20:58)
[2021-01-15] MEDS: Neosporin OINT 15 GM TUBE TP SCH ×2 (09:19→16:48)
[2021-01-15] MEDS: QUEtiapine Fumarate 25 MG TABLET PO SCH (20:57)
[2021-01-16] MEDS: Neosporin OINT 15 GM TUBE TP SCH ×3 (00:16→15:47)
[2021-01-16] MEDS: *HR* Heparin 5,000 UNIT/ML VIAL SQ SCH ×3 (06:06→20:42)
[2021-01-16] MEDS: *HR* OxyCODONE Immed Rel 5 MG TABLET PO PRN ×2 (06:07→14:20)
[2021-01-16] MEDS: levoFLOXacin 750 MG TABLET PO SCH (09:05)
[2021-01-16] MEDS: Bumetanide 1 MG TABLET PO SCH ×2 (09:05→15:47)
[2021-01-16] MEDS: Nystatin POWDER 30 GM BOTTLE TP SCH ×2 (09:06→19:43)
[2021-01-16] MEDS: Gabapentin 300 MG CAPSULE PO SCH ×3 (09:06→19:42)
[2021-01-16] MEDS: Famotidine 20 MG TABLET PO SCH ×2 (09:06→19:42)
[2021-01-16] MEDS: Sennosides/Docusate Sodium TABLET PO SCH ×2 (09:06→19:43)
[2021-01-16] MEDS: QUEtiapine Fumarate 25 MG TABLET PO SCH (19:43)
[2021-01-17] MEDS: Neosporin OINT 15 GM TUBE TP SCH ×3 (00:28→16:25)
[2021-01-17] MEDS: *HR* Heparin 5,000 UNIT/ML VIAL SQ SCH ×3 (05:00→20:23)
[2021-01-17 08:00] LABS: BUN/Creatinine Ratio 13 (6-26); Blood Urea Nitrogen 10 mg/dL (6-20); Calcium 9.6 mg/dL (8.6-10.3); Carbon Dioxide 30 mEq/L (23-29); Chloride 94 mEq/L (98-107); Glucose 91 mg/dL (70-105); Osmolality,Calculated 279 (280-300); Sodium 135 mEq/L (136-145); eGFR For African Americans > 60 (> 60); eGFR For Non-African Americans > 60 (> 60)
[2021-01-17] MEDS: Sennosides/Docusate Sodium TABLET PO SCH ×2 (10:29→20:23)
[2021-01-17] MEDS: levoFLOXacin 750 MG TABLET PO SCH (10:29)
[2021-01-17] MEDS: Gabapentin 300 MG CAPSULE PO SCH ×3 (10:29→20:22)
[2021-01-17] MEDS: Bumetanide 1 MG TABLET PO SCH ×2 (10:29→16:24)
[2021-01-17] MEDS: Famotidine 20 MG TABLET PO SCH ×2 (10:29→20:23)
[2021-01-17] MEDS: Nystatin POWDER 30 GM BOTTLE TP SCH ×2 (10:31→20:23)
[2021-01-17] MEDS: *HR* OxyCODONE Immed Rel 5 MG TABLET PO PRN ×2 (10:38→20:22)
[2021-01-17] MEDS: QUEtiapine Fumarate 25 MG TABLET PO SCH (20:22)
[2021-01-18] MEDS: Neosporin OINT 15 GM TUBE TP SCH ×4 (00:20→22:11)
[2021-01-18] MEDS: *HR* OxyCODONE Immed Rel 5 MG TABLET PO PRN ×3 (05:26→22:06)
[2021-01-18] MEDS: *HR* Heparin 5,000 UNIT/ML VIAL SQ SCH ×3 (05:26→22:07)
[2021-01-18] MEDS: Bumetanide 1 MG TABLET PO SCH ×2 (08:09→16:53)
[2021-01-18] MEDS: *HR* LORazepam 0.5 MG TABLET PO PRN ×2 (08:09→22:08)
[2021-01-18] MEDS: levoFLOXacin 750 MG TABLET PO SCH (08:09)
[2021-01-18] MEDS: Sennosides/Docusate Sodium TABLET PO SCH ×2 (08:09→22:08)
[2021-01-18] MEDS: Gabapentin 300 MG CAPSULE PO SCH ×3 (08:09→22:07)
[2021-01-18] MEDS: Nystatin POWDER 30 GM BOTTLE TP SCH ×2 (08:10→22:10)
[2021-01-18] MEDS: Famotidine 20 MG TABLET PO SCH ×2 (08:10→22:06)
[2021-01-18] MEDS: polyethylene glycoL 3350 17 GM POWD.PACK PO PRN (12:34)
[2021-01-18] MEDS: QUEtiapine Fumarate 25 MG TABLET PO SCH (22:07)
[2021-01-19] MEDS: *HR* Heparin 5,000 UNIT/ML VIAL SQ SCH ×3 (05:19→21:21)
[2021-01-19] MEDS: *HR* LORazepam 0.5 MG TABLET PO PRN (08:08)
[2021-01-19] MEDS: Neosporin OINT 15 GM TUBE TP SCH ×2 (08:08→15:20)
[2021-01-19] MEDS: Famotidine 20 MG TABLET PO SCH ×2 (08:08→21:22)
[2021-01-19] MEDS: Gabapentin 300 MG CAPSULE PO SCH ×3 (08:08→21:22)
[2021-01-19] MEDS: Bumetanide 1 MG TABLET PO SCH ×2 (08:08→16:25)
[2021-01-19] MEDS: Nystatin POWDER 30 GM BOTTLE TP SCH ×2 (08:08→22:23)
[2021-01-19] MEDS: Sennosides/Docusate Sodium TABLET PO SCH ×2 (08:09→21:22)
[2021-01-19] MEDS: *HR* OxyCODONE Immed Rel 5 MG TABLET PO PRN ×3 (08:09→21:21)
[2021-01-19] MEDS ORDERED: Potassium Chloride Elixir 20 MEQ/15 ML UDC PO ONE (09:52)
[2021-01-19] MEDS: QUEtiapine Fumarate 25 MG TABLET PO SCH (21:21)
[2021-01-20] MEDS: Neosporin OINT 15 GM TUBE TP SCH ×3 (00:05→16:47)
[2021-01-20] MEDS: *HR* Heparin 5,000 UNIT/ML VIAL SQ SCH ×3 (05:39→20:44)
[2021-01-20] MEDS: *HR* OxyCODONE Immed Rel 5 MG TABLET PO PRN ×4 (06:05→20:51)
[2021-01-20 08:15] LABS: Basophils # 0.2 K/mcL (0.0-0.2); Basophils % 1.8 %; Eosinophils # 0.5 K/mcL (0.0-0.6); Eosinophils % 4.7 %; Hematocrit 44.8 % (37.5-50.1); Hemoglobin 15.2 g/dL (12.9-16.9); Lymphocytes % 29.8 %; Mean Corpuscular HGB Conc 33.9 g/dL (31.6-35.5); Mean Corpuscular Hemoglobin 28.7 pg (28.0-33.3); Mean Corpuscular Volume 84.7 fL (83.0-100.0); Mean Platelet Volume 9.9 fL (9.4-12.4); Monocytes # 0.7 K/mcL (0.0-1.3); Monocytes % 7.2 %; Neutrophils # 5.4 K/mcL (1.6-8.9); Platelet Count 309 K/mcL (140-400); Red Blood Count 5.29 M/mcL (4.19-5.50); Red Cell Distribution Width 14.4 % (11.5-14.5); Segmented Neutrophils % 53.5 %; White Blood Count 10.2 K/mcL (4.3-11.1)
[2021-01-20 08:34] LABS: BUN/Creatinine Ratio 16 (6-26); Blood Urea Nitrogen 11 mg/dL (6-20); Calcium 9.4 mg/dL (8.6-10.3); Carbon Dioxide 26 mEq/L (23-29); Chloride 95 mEq/L (98-107); Glucose 94 mg/dL (70-105); Osmolality,Calculated 273 (280-300); Potassium 3.6 mEq/L (3.5-5.1); Sodium 132 mEq/L (136-145); eGFR For African Americans > 60 (> 60); eGFR For Non-African Americans > 60 (> 60)
[2021-01-20] MEDS: Gabapentin 300 MG CAPSULE PO SCH ×3 (10:07→20:45)
[2021-01-20] MEDS: Famotidine 20 MG TABLET PO SCH ×2 (10:07→20:45)
[2021-01-20] MEDS: Bumetanide 1 MG TABLET PO SCH ×2 (10:07→16:47)
[2021-01-20] MEDS: Sennosides/Docusate Sodium TABLET PO SCH ×2 (10:07→20:45)
[2021-01-20] MEDS: Nystatin POWDER 30 GM BOTTLE TP SCH (10:08)
[2021-01-20] MEDS: *HR* LORazepam 0.5 MG TABLET PO PRN (11:32)
[2021-01-20] MEDS: QUEtiapine Fumarate 25 MG TABLET PO SCH (20:45)
[2021-01-21] MEDS: Nystatin POWDER 30 GM BOTTLE TP SCH ×3 (02:00→21:39)
[2021-01-21] MEDS: Neosporin OINT 15 GM TUBE TP SCH ×3 (02:00→17:22)
[2021-01-21] MEDS: *HR* OxyCODONE Immed Rel 5 MG TABLET PO PRN ×4 (06:27→21:26)
[2021-01-21] MEDS: *HR* Heparin 5,000 UNIT/ML VIAL SQ SCH ×3 (06:28→21:16)
[2021-01-21] MEDS: Gabapentin 300 MG CAPSULE PO SCH ×3 (10:33→21:17)
[2021-01-21] MEDS: Bumetanide 1 MG TABLET PO SCH ×2 (10:33→17:22)
[2021-01-21] MEDS: Famotidine 20 MG TABLET PO SCH ×2 (10:33→21:17)
[2021-01-21] MEDS: Sennosides/Docusate Sodium TABLET PO SCH ×2 (10:34→21:17)
[2021-01-21] MEDS: *HR* LORazepam 0.5 MG TABLET PO PRN ×2 (10:45→21:17)
[2021-01-21] MEDS: OLANZapine 5 MG TAB.RAPDIS PO SCH (21:17)
[2021-01-22] MEDS: Neosporin OINT 15 GM TUBE TP SCH ×3 (01:19→15:29)
[2021-01-22] MEDS: *HR* Heparin 5,000 UNIT/ML VIAL SQ SCH ×3 (05:56→20:43)
[2021-01-22] MEDS: *HR* OxyCODONE Immed Rel 5 MG TABLET PO PRN ×3 (05:56→20:43)
[2021-01-22] MEDS: Bumetanide 1 MG TABLET PO SCH ×2 (10:23→17:52)
[2021-01-22] MEDS: OLANZapine 5 MG TAB.RAPDIS PO SCH ×2 (10:23→20:43)
[2021-01-22] MEDS: Gabapentin 300 MG CAPSULE PO SCH ×3 (10:23→20:43)
[2021-01-22] MEDS: Famotidine 20 MG TABLET PO SCH ×2 (10:23→20:42)
[2021-01-22] MEDS: Sennosides/Docusate Sodium TABLET PO SCH ×2 (10:23→20:43)
[2021-01-22] MEDS: Nystatin POWDER 30 GM BOTTLE TP SCH ×2 (10:24→20:48)
[2021-01-23] MEDS: *HR* OxyCODONE Immed Rel 5 MG TABLET PO PRN ×4 (03:28→20:34)
[2021-01-23] MEDS: *HR* Heparin 5,000 UNIT/ML VIAL SQ SCH ×3 (06:24→20:34)
[2021-01-23 08:24] LABS: Basophils # 0.2 K/mcL (0.0-0.2); Basophils % 1.3 %; Eosinophils # 0.6 K/mcL (0.0-0.6); Eosinophils % 4.5 %; Hematocrit 47.4 % (37.5-50.1); Hemoglobin 16.1 g/dL (12.9-16.9); Immature Granulocytes % 2.1 % (0-4); Lymphocytes # 3.5 K/mcL (0.6-4.6); Lymphocytes % 27.7 %; Mean Corpuscular Hemoglobin 28.9 pg (28.0-33.3); Mean Corpuscular Volume 84.9 fL (83.0-100.0); Mean Platelet Volume 10.2 fL (9.4-12.4); Monocytes # 0.8 K/mcL (0.0-1.3); Monocytes % 6.3 %; Platelet Count 309 K/mcL (140-400); Red Blood Count 5.58 M/mcL (4.19-5.50); Red Cell Distribution Width 14.3 % (11.5-14.5); Segmented Neutrophils % 58.1 %; White Blood Count 12.6 K/mcL (4.3-11.1)
[2021-01-23 08:37] LABS: BUN/Creatinine Ratio 13 (6-26); Blood Urea Nitrogen 10 mg/dL (6-20); Calcium 9.8 mg/dL (8.6-10.3); Carbon Dioxide 28 mEq/L (23-29); Chloride 96 mEq/L (98-107); Glucose 104 mg/dL (70-105); Neutrophils # 7.3 K/mcL (1.6-8.9); Osmolality,Calculated 279 (280-300); Potassium 3.7 mEq/L (3.5-5.1); Sodium 135 mEq/L (136-145); eGFR For African Americans > 60 (> 60); eGFR For Non-African Americans > 60 (> 60)
[2021-01-23] MEDS: Sennosides/Docusate Sodium TABLET PO SCH ×2 (09:44→20:33)
[2021-01-23] MEDS: Bumetanide 1 MG TABLET PO SCH ×2 (09:44→16:08)
[2021-01-23] MEDS: Famotidine 20 MG TABLET PO SCH ×2 (09:44→20:33)
[2021-01-23] MEDS: Nystatin POWDER 30 GM BOTTLE TP SCH ×2 (09:44→20:34)
[2021-01-23] MEDS: Gabapentin 300 MG CAPSULE PO SCH ×3 (09:44→20:34)
[2021-01-23] MEDS: OLANZapine 5 MG TAB.RAPDIS PO SCH ×2 (09:44→20:33)
[2021-01-23] MEDS: Neosporin OINT 15 GM TUBE TP SCH ×3 (09:45→16:09)
[2021-01-24] MEDS: Neosporin OINT 15 GM TUBE TP SCH ×3 (00:50→15:34)
[2021-01-24] MEDS: *HR* OxyCODONE Immed Rel 5 MG TABLET PO PRN ×2 (06:10→21:18)
[2021-01-24] MEDS: *HR* Heparin 5,000 UNIT/ML VIAL SQ SCH ×3 (06:13→21:19)
[2021-01-24] MEDS: Bumetanide 1 MG TABLET PO SCH ×2 (08:48→15:33)
[2021-01-24] MEDS: Famotidine 20 MG TABLET PO SCH ×2 (08:48→21:18)
[2021-01-24] MEDS: OLANZapine 5 MG TAB.RAPDIS PO SCH ×2 (08:49→21:18)
[2021-01-24] MEDS: Sennosides/Docusate Sodium TABLET PO SCH ×2 (08:49→21:18)
[2021-01-24] MEDS: Gabapentin 300 MG CAPSULE PO SCH ×3 (08:49→21:18)
[2021-01-24] MEDS: Nystatin POWDER 30 GM BOTTLE TP SCH ×2 (08:50→21:19)
[2021-01-25] MEDS: Neosporin OINT 15 GM TUBE TP SCH ×4 (00:23→20:45)
[2021-01-25] MEDS: *HR* OxyCODONE Immed Rel 5 MG TABLET PO PRN ×4 (02:16→17:13)
[2021-01-25] MEDS: *HR* Heparin 5,000 UNIT/ML VIAL SQ SCH ×3 (06:06→20:45)
[2021-01-25] MEDS: OLANZapine 5 MG TAB.RAPDIS PO SCH ×2 (08:16→20:42)
[2021-01-25] MEDS: Sennosides/Docusate Sodium TABLET PO SCH ×2 (08:16→20:43)
[2021-01-25] MEDS: Bumetanide 1 MG TABLET PO SCH ×2 (08:16→17:13)
[2021-01-25] MEDS: Famotidine 20 MG TABLET PO SCH ×2 (08:16→20:44)
[2021-01-25] MEDS: Gabapentin 300 MG CAPSULE PO SCH ×3 (08:16→20:41)
[2021-01-25] MEDS: Nystatin POWDER 30 GM BOTTLE TP SCH ×2 (08:17→20:44)
[2021-01-25] MEDS: Acetaminophen 325 MG TABLET PO PRN (20:42)
[2021-01-26] MEDS: *HR* Heparin 5,000 UNIT/ML VIAL SQ SCH ×3 (06:15→22:25)
[2021-01-26] MEDS: *HR* OxyCODONE Immed Rel 5 MG TABLET PO PRN ×2 (06:21→14:46)
[2021-01-26] MEDS: OLANZapine 5 MG TAB.RAPDIS PO SCH (08:37)
[2021-01-26] MEDS: Gabapentin 300 MG CAPSULE PO SCH ×3 (08:37→22:23)
[2021-01-26] MEDS: Famotidine 20 MG TABLET PO SCH ×2 (08:37→22:23)
[2021-01-26] MEDS: Sennosides/Docusate Sodium TABLET PO SCH ×2 (08:38→22:23)
[2021-01-26] MEDS: Bumetanide 1 MG TABLET PO SCH ×2 (08:38→16:30)
[2021-01-26] MEDS: Nystatin POWDER 30 GM BOTTLE TP SCH ×2 (08:39→22:24)
[2021-01-26] MEDS: Neosporin OINT 15 GM TUBE TP SCH ×3 (08:42→22:24)
[2021-01-26 12:46] LABS: Hematocrit 47.1 % (37.5-50.1); Hemoglobin 16.1 g/dL (12.9-16.9); Mean Corpuscular HGB Conc 34.2 g/dL (31.6-35.5); Mean Corpuscular Hemoglobin 28.9 pg (28.0-33.3); Mean Corpuscular Volume 84.6 fL (83.0-100.0); Mean Platelet Volume 10.1 fL (9.4-12.4); Platelet Count 305 K/mcL (140-400); Red Blood Count 5.57 M/mcL (4.19-5.50); White Blood Count 12.5 K/mcL (4.3-11.1)
[2021-01-26 13:19] LABS: BUN/Creatinine Ratio 18 (6-26); Blood Urea Nitrogen 14 mg/dL (6-20); Calcium 9.6 mg/dL (8.6-10.3); Carbon Dioxide 27 mEq/L (23-29); Chloride 96 mEq/L (98-107); Glucose 108 mg/dL (70-105); Osmolality,Calculated 281 (280-300); Potassium 3.2 mEq/L (3.5-5.1); Sodium 135 mEq/L (136-145); eGFR For African Americans > 60 (> 60); eGFR For Non-African Americans > 60 (> 60)
[2021-01-26] MEDS ORDERED: Haloperidol Lactate 5 MG/ML VIAL IM PRN (19:00)
[2021-01-27] MEDS: *HR* Heparin 5,000 UNIT/ML VIAL SQ SCH ×3 (06:41→21:04)
[2021-01-27] MEDS: Bumetanide 1 MG TABLET PO SCH ×2 (09:04→17:19)
[2021-01-27] MEDS: Gabapentin 300 MG CAPSULE PO SCH ×3 (09:04→21:05)
[2021-01-27] MEDS: Famotidine 20 MG TABLET PO SCH ×2 (09:04→21:05)
[2021-01-27] MEDS: Sennosides/Docusate Sodium TABLET PO SCH ×2 (09:04→21:05)
[2021-01-27] MEDS: Nystatin POWDER 30 GM BOTTLE TP SCH ×2 (09:05→21:06)
[2021-01-27] MEDS: Neosporin OINT 15 GM TUBE TP SCH ×3 (09:05→23:19)
[2021-01-27] MEDS: *HR* OxyCODONE Immed Rel 5 MG TABLET PO PRN ×3 (09:11→21:05)
[2021-01-28] MEDS: *HR* Heparin 5,000 UNIT/ML VIAL SQ SCH ×3 (05:55→20:33)
[2021-01-28] MEDS: *HR* OxyCODONE Immed Rel 5 MG TABLET PO PRN ×4 (06:03→20:34)
[2021-01-28] MEDS: Sennosides/Docusate Sodium TABLET PO SCH ×2 (08:31→20:34)
[2021-01-28] MEDS: Bumetanide 1 MG TABLET PO SCH ×2 (08:31→16:14)
[2021-01-28] MEDS: Nystatin POWDER 30 GM BOTTLE TP SCH ×2 (08:33→20:34)
[2021-01-28] MEDS: Famotidine 20 MG TABLET PO SCH ×2 (08:33→20:34)
[2021-01-28] MEDS: Gabapentin 300 MG CAPSULE PO SCH ×3 (08:33→20:34)
[2021-01-28] MEDS: Neosporin OINT 15 GM TUBE TP SCH ×3 (08:34→23:20)
[2021-01-28] MEDS: polyethylene glycoL 3350 17 GM POWD.PACK PO PRN (11:28)
[2021-01-29] MEDS: *HR* OxyCODONE Immed Rel 5 MG TABLET PO PRN ×4 (05:35→21:03)
[2021-01-29] MEDS: *HR* Heparin 5,000 UNIT/ML VIAL SQ SCH ×3 (05:35→21:00)
[2021-01-29] MEDS: Sennosides/Docusate Sodium TABLET PO SCH ×2 (09:30→20:59)
[2021-01-29] MEDS: Nystatin POWDER 30 GM BOTTLE TP SCH ×2 (09:31→20:59)
[2021-01-29] MEDS: Famotidine 20 MG TABLET PO SCH ×2 (09:31→20:59)
[2021-01-29] MEDS: Bumetanide 1 MG TABLET PO SCH ×2 (09:31→16:22)
[2021-01-29] MEDS: Gabapentin 300 MG CAPSULE PO SCH ×3 (09:31→20:59)
[2021-01-29] MEDS: Neosporin OINT 15 GM TUBE TP SCH ×3 (09:42→23:47)
[2021-01-30] MEDS: *HR* OxyCODONE Immed Rel 5 MG TABLET PO PRN ×3 (02:07→17:32)
[2021-01-30] MEDS: *HR* Heparin 5,000 UNIT/ML VIAL SQ SCH ×3 (05:43→22:13)
[2021-01-30] MEDS: Famotidine 20 MG TABLET PO SCH ×2 (09:44→22:14)
[2021-01-30] MEDS: polyethylene glycoL 3350 17 GM POWD.PACK PO PRN (09:45)
[2021-01-30] MEDS: Sennosides/Docusate Sodium TABLET PO SCH ×2 (09:45→22:14)
[2021-01-30] MEDS: Bumetanide 1 MG TABLET PO SCH ×2 (09:45→17:19)
[2021-01-30] MEDS: Gabapentin 300 MG CAPSULE PO SCH ×3 (09:45→22:14)
[2021-01-30] MEDS: Nystatin POWDER 30 GM BOTTLE TP SCH ×2 (09:46→22:13)
[2021-01-30] MEDS: Neosporin OINT 15 GM TUBE TP SCH ×3 (09:47→22:14)
[2021-01-31] MEDS: *HR* Heparin 5,000 UNIT/ML VIAL SQ SCH ×3 (04:51→21:12)
[2021-01-31] MEDS: *HR* OxyCODONE Immed Rel 5 MG TABLET PO PRN ×4 (04:51→21:29)
[2021-01-31] MEDS: Famotidine 20 MG TABLET PO SCH ×2 (08:29→21:12)
[2021-01-31] MEDS: Bumetanide 1 MG TABLET PO SCH ×2 (08:29→16:34)
[2021-01-31] MEDS: Sennosides/Docusate Sodium TABLET PO SCH ×2 (08:29→21:12)
[2021-01-31] MEDS: Gabapentin 300 MG CAPSULE PO SCH ×3 (08:29→21:12)
[2021-01-31] MEDS: Nystatin POWDER 30 GM BOTTLE TP SCH ×2 (08:31→21:21)
[2021-01-31] MEDS: Neosporin OINT 15 GM TUBE TP SCH ×3 (08:32→23:25)
[2021-01-31 15:10] LABS: Serine Protease-3 Antibody 16 AU/mL (0-19)
[2021-01-31] MEDS: Methyl Salicylate/Menthol 85 APPL/85 GM TUBE TP PRN (21:21)
[2021-02-01] MEDS: *HR* Heparin 5,000 UNIT/ML VIAL SQ SCH ×3 (05:20→19:52)
[2021-02-01] MEDS: *HR* OxyCODONE Immed Rel 5 MG TABLET PO PRN ×4 (05:23→23:09)
[2021-02-01] MEDS: Famotidine 20 MG TABLET PO SCH ×2 (07:33→19:43)
[2021-02-01] MEDS: Sennosides/Docusate Sodium TABLET PO SCH ×2 (07:33→19:43)
[2021-02-01] MEDS: Gabapentin 300 MG CAPSULE PO SCH ×3 (07:33→19:43)
[2021-02-01] MEDS: Bumetanide 1 MG TABLET PO SCH ×2 (07:34→16:16)
[2021-02-01] MEDS: Nystatin POWDER 30 GM BOTTLE TP SCH ×2 (07:42→19:43)
[2021-02-01] MEDS: Neosporin OINT 15 GM TUBE TP SCH ×3 (07:43→23:10)
[2021-02-01] MEDS: Carbamide Peroxide 150 DROP/15 ML BOTTLE BOTH EARS SCH ×2 (16:27→19:48)
[2021-02-02] MEDS: *HR* OxyCODONE Immed Rel 5 MG TABLET PO PRN ×4 (05:07→20:47)
[2021-02-02] MEDS: *HR* Heparin 5,000 UNIT/ML VIAL SQ SCH ×3 (05:07→20:49)
[2021-02-02] MEDS: Gabapentin 300 MG CAPSULE PO SCH ×3 (08:29→20:47)
[2021-02-02] MEDS: Nystatin POWDER 30 GM BOTTLE TP SCH ×2 (08:30→20:49)
[2021-02-02] MEDS: Famotidine 20 MG TABLET PO SCH ×2 (08:30→20:47)
[2021-02-02] MEDS: Bumetanide 1 MG TABLET PO SCH ×2 (08:30→16:00)
[2021-02-02] MEDS: Sennosides/Docusate Sodium TABLET PO SCH ×2 (08:30→20:48)
[2021-02-02] MEDS: Carbamide Peroxide 150 DROP/15 ML BOTTLE BOTH EARS SCH ×2 (08:35→20:53)
[2021-02-02] MEDS: Neosporin OINT 15 GM TUBE TP SCH ×3 (08:36→20:49)
[2021-02-03] MEDS: *HR* Heparin 5,000 UNIT/ML VIAL SQ SCH ×3 (06:17→21:20)
[2021-02-03] MEDS: *HR* OxyCODONE Immed Rel 5 MG TABLET PO PRN ×3 (06:24→18:51)
[2021-02-03 07:05] LABS: Basophils # 0.1 K/mcL (0.0-0.2); Basophils % 0.8 %; Eosinophils # 0.7 K/mcL (0.0-0.6); Eosinophils % 5.7 %; Hematocrit 44.4 % (37.5-50.1); Hemoglobin 14.9 g/dL (12.9-16.9); Immature Granulocytes % 1.5 % (0-4); Lymphocytes # 3.1 K/mcL (0.6-4.6); Lymphocytes % 25.6 %; Mean Corpuscular HGB Conc 33.6 g/dL (31.6-35.5); Mean Corpuscular Hemoglobin 28.9 pg (28.0-33.3); Mean Corpuscular Volume 86.2 fL (83.0-100.0); Monocytes # 0.9 K/mcL (0.0-1.3); Monocytes % 7.2 %; Neutrophils # 7.2 K/mcL (1.6-8.9); Platelet Count 307 K/mcL (140-400); Red Blood Count 5.15 M/mcL (4.19-5.50); Red Cell Distribution Width 14.2 % (11.5-14.5); Segmented Neutrophils % 59.2 %; White Blood Count 12.2 K/mcL (4.3-11.1)
[2021-02-03 07:28] LABS: BUN/Creatinine Ratio 15 (6-26); Blood Urea Nitrogen 12 mg/dL (6-20); Calcium 9.7 mg/dL (8.6-10.3); Carbon Dioxide 30 mEq/L (23-29); Chloride 97 mEq/L (98-107); Glucose 107 mg/dL (70-105); Osmolality,Calculated 284 (280-300); Potassium 3.5 mEq/L (3.5-5.1); Sodium 137 mEq/L (136-145); eGFR For African Americans > 60 (> 60); eGFR For Non-African Americans > 60 (> 60)
[2021-02-03] MEDS: Bumetanide 1 MG TABLET PO SCH ×2 (09:40→15:59)
[2021-02-03] MEDS: Gabapentin 300 MG CAPSULE PO SCH ×3 (09:40→21:19)
[2021-02-03] MEDS: Sennosides/Docusate Sodium TABLET PO SCH ×2 (09:40→21:20)
[2021-02-03] MEDS: Famotidine 20 MG TABLET PO SCH ×2 (09:40→21:19)
[2021-02-03] MEDS: Neosporin OINT 15 GM TUBE TP SCH ×3 (09:41→21:23)
[2021-02-03] MEDS: Carbamide Peroxide 150 DROP/15 ML BOTTLE BOTH EARS SCH ×2 (09:41→21:23)
[2021-02-03] MEDS: Nystatin POWDER 30 GM BOTTLE TP SCH ×2 (09:42→21:22)
[2021-02-03] MEDS: Methyl Salicylate/Menthol 85 APPL/85 GM TUBE TP PRN (21:22)
[2021-02-04] MEDS: *HR* Heparin 5,000 UNIT/ML VIAL SQ SCH ×3 (06:04→21:28)
[2021-02-04] MEDS: *HR* OxyCODONE Immed Rel 5 MG TABLET PO PRN ×4 (06:05→21:33)
[2021-02-04] MEDS: Bumetanide 1 MG TABLET PO SCH ×2 (08:28→17:22)
[2021-02-04] MEDS: Gabapentin 300 MG CAPSULE PO SCH ×3 (08:29→21:25)
[2021-02-04] MEDS: Famotidine 20 MG TABLET PO SCH ×2 (08:29→21:28)
[2021-02-04] MEDS: Carbamide Peroxide 150 DROP/15 ML BOTTLE BOTH EARS SCH (08:30)
[2021-02-04] MEDS: Sennosides/Docusate Sodium TABLET PO SCH ×2 (08:30→21:26)
[2021-02-04] MEDS: Nystatin POWDER 30 GM BOTTLE TP SCH ×2 (08:30→21:37)
[2021-02-04] MEDS: Neosporin OINT 15 GM TUBE TP SCH ×3 (08:30→21:36)
[2021-02-04] MEDS: Methyl Salicylate/Menthol 85 APPL/85 GM TUBE TP PRN (21:37)
[2021-02-05] MEDS: *HR* OxyCODONE Immed Rel 5 MG TABLET PO PRN ×4 (04:38→21:35)
[2021-02-05] MEDS: *HR* Heparin 5,000 UNIT/ML VIAL SQ SCH ×3 (06:08→21:36)
[2021-02-05] MEDS: Sennosides/Docusate Sodium TABLET PO SCH ×2 (09:06→21:36)
[2021-02-05] MEDS: Bumetanide 1 MG TABLET PO SCH ×2 (09:06→16:13)
[2021-02-05] MEDS: Gabapentin 300 MG CAPSULE PO SCH ×3 (09:06→21:34)
[2021-02-05] MEDS: Famotidine 20 MG TABLET PO SCH ×2 (09:07→21:34)
[2021-02-05] MEDS: Nystatin POWDER 30 GM BOTTLE TP SCH ×2 (09:07→21:43)
[2021-02-05] MEDS: Neosporin OINT 15 GM TUBE TP SCH ×3 (09:08→21:42)
[2021-02-05] MEDS: Methyl Salicylate/Menthol 85 APPL/85 GM TUBE TP PRN (21:42)
[2021-02-06] MEDS: *HR* Heparin 5,000 UNIT/ML VIAL SQ SCH ×3 (06:16→20:52)
[2021-02-06] MEDS: *HR* OxyCODONE Immed Rel 5 MG TABLET PO PRN ×3 (06:16→20:52)
[2021-02-06] MEDS: Sennosides/Docusate Sodium TABLET PO SCH ×2 (09:23→20:52)
[2021-02-06] MEDS: Famotidine 20 MG TABLET PO SCH ×2 (09:23→20:52)
[2021-02-06] MEDS: Bumetanide 1 MG TABLET PO SCH ×2 (09:24→15:41)
[2021-02-06] MEDS: Gabapentin 300 MG CAPSULE PO SCH ×3 (09:24→20:51)
[2021-02-06] MEDS: Nystatin POWDER 30 GM BOTTLE TP SCH ×2 (09:25→20:53)
[2021-02-06] MEDS: Neosporin OINT 15 GM TUBE TP SCH ×2 (09:25→15:43)
[2021-02-07] MEDS: Neosporin OINT 15 GM TUBE TP SCH ×3 (00:32→16:21)
[2021-02-07] MEDS: *HR* OxyCODONE Immed Rel 5 MG TABLET PO PRN ×4 (03:14→20:56)
[2021-02-07] MEDS: *HR* Heparin 5,000 UNIT/ML VIAL SQ SCH ×3 (05:39→20:54)
[2021-02-07] MEDS: Sennosides/Docusate Sodium TABLET PO SCH ×2 (08:27→20:54)
[2021-02-07] MEDS: Gabapentin 300 MG CAPSULE PO SCH ×3 (08:27→20:54)
[2021-02-07] MEDS: Bumetanide 1 MG TABLET PO SCH ×2 (08:27→16:20)
[2021-02-07] MEDS: Famotidine 20 MG TABLET PO SCH ×2 (08:27→20:54)
[2021-02-07] MEDS: Nystatin POWDER 30 GM BOTTLE TP SCH ×2 (08:34→20:55)
[2021-02-07] MEDS: Simethicone 80 MG TAB.CHEW PO PRN ×2 (13:29→23:32)
[2021-02-07] MEDS: Methyl Salicylate/Menthol 85 APPL/85 GM TUBE TP PRN (20:55)
[2021-02-08] MEDS: Neosporin OINT 15 GM TUBE TP SCH ×4 (01:00→21:06)
[2021-02-08] MEDS: *HR* OxyCODONE Immed Rel 5 MG TABLET PO PRN ×4 (05:28→21:05)
[2021-02-08] MEDS: *HR* Heparin 5,000 UNIT/ML VIAL SQ SCH ×3 (05:37→21:05)
[2021-02-08] MEDS: Bumetanide 1 MG TABLET PO SCH ×2 (08:54→17:12)
[2021-02-08] MEDS: Gabapentin 300 MG CAPSULE PO SCH ×3 (08:54→21:05)
[2021-02-08] MEDS: Sennosides/Docusate Sodium TABLET PO SCH ×2 (08:55→21:05)
[2021-02-08] MEDS: Famotidine 20 MG TABLET PO SCH ×2 (08:55→21:05)
[2021-02-08] MEDS: Nystatin POWDER 30 GM BOTTLE TP SCH ×2 (08:57→21:06)
[2021-02-08] MEDS: Simethicone 80 MG TAB.CHEW PO PRN ×2 (09:58→21:05)
[2021-02-08] MEDS: Carbamide Peroxide 150 DROP/15 ML BOTTLE LEFT EAR SCH (09:59)
[2021-02-08] MEDS: Carbamide Peroxide 150 DROP/15 ML BOTTLE RIGHT EAR SCH (09:59)
[2021-02-09] MEDS: *HR* OxyCODONE Immed Rel 5 MG TABLET PO PRN ×4 (05:38→21:54)
[2021-02-09] MEDS: *HR* Heparin 5,000 UNIT/ML VIAL SQ SCH ×3 (05:38→21:54)
[2021-02-09] MEDS: Bumetanide 1 MG TABLET PO SCH ×2 (09:17→16:39)
[2021-02-09] MEDS: Famotidine 20 MG TABLET PO SCH ×2 (09:17→21:53)
[2021-02-09] MEDS: Sennosides/Docusate Sodium TABLET PO SCH ×2 (09:18→21:53)
[2021-02-09] MEDS: Gabapentin 300 MG CAPSULE PO SCH ×3 (09:18→21:53)
[2021-02-09] MEDS: Nystatin POWDER 30 GM BOTTLE TP SCH ×2 (09:20→21:54)
[2021-02-09] MEDS: Carbamide Peroxide 150 DROP/15 ML BOTTLE RIGHT EAR SCH (09:20)
[2021-02-09] MEDS: Carbamide Peroxide 150 DROP/15 ML BOTTLE LEFT EAR SCH (09:20)
[2021-02-10] MEDS: *HR* OxyCODONE Immed Rel 5 MG TABLET PO PRN ×4 (01:43→21:01)
[2021-02-10] MEDS: *HR* Heparin 5,000 UNIT/ML VIAL SQ SCH ×3 (06:42→21:05)
[2021-02-10] MEDS: Gabapentin 300 MG CAPSULE PO SCH ×3 (08:02→21:03)
[2021-02-10] MEDS: Bumetanide 1 MG TABLET PO SCH ×2 (08:02→16:18)
[2021-02-10] MEDS: Sennosides/Docusate Sodium TABLET PO SCH ×2 (08:03→21:04)
[2021-02-10] MEDS: Carbamide Peroxide 150 DROP/15 ML BOTTLE RIGHT EAR SCH (08:03)
[2021-02-10] MEDS: Famotidine 20 MG TABLET PO SCH ×2 (08:03→21:04)
[2021-02-10] MEDS: Carbamide Peroxide 150 DROP/15 ML BOTTLE LEFT EAR SCH (08:03)
[2021-02-10] MEDS: Nystatin POWDER 30 GM BOTTLE TP SCH ×2 (08:04→21:06)
[2021-02-10] MEDS: Methyl Salicylate/Menthol 85 APPL/85 GM TUBE TP PRN (08:07)
[2021-02-10] MEDS: Simethicone 80 MG TAB.CHEW PO PRN (10:03)
[2021-02-11] MEDS: *HR* Heparin 5,000 UNIT/ML VIAL SQ SCH ×3 (05:31→22:00)
[2021-02-11] MEDS: *HR* OxyCODONE Immed Rel 5 MG TABLET PO PRN ×4 (05:34→20:58)
[2021-02-11] MEDS: Sennosides/Docusate Sodium TABLET PO SCH ×2 (09:00→20:55)
[2021-02-11] MEDS: Gabapentin 300 MG CAPSULE PO SCH ×3 (09:00→20:56)
[2021-02-11] MEDS: Bumetanide 1 MG TABLET PO SCH ×2 (09:00→15:50)
[2021-02-11] MEDS: Famotidine 20 MG TABLET PO SCH ×2 (09:00→20:57)
[2021-02-11] MEDS: Carbamide Peroxide 150 DROP/15 ML BOTTLE LEFT EAR SCH (09:02)
[2021-02-11] MEDS: Carbamide Peroxide 150 DROP/15 ML BOTTLE RIGHT EAR SCH (09:02)
[2021-02-11] MEDS: Nystatin POWDER 30 GM BOTTLE TP SCH ×2 (09:08→21:03)
[2021-02-11] MEDS: Methyl Salicylate/Menthol 85 APPL/85 GM TUBE TP PRN (21:04)
[2021-02-12] MEDS: *HR* OxyCODONE Immed Rel 5 MG TABLET PO PRN ×4 (02:16→20:50)
[2021-02-12] MEDS: *HR* Heparin 5,000 UNIT/ML VIAL SQ SCH ×3 (06:46→20:52)
[2021-02-12] MEDS: Famotidine 20 MG TABLET PO SCH ×2 (08:02→20:50)
[2021-02-12] MEDS: Bumetanide 1 MG TABLET PO SCH ×2 (08:02→17:37)
[2021-02-12] MEDS: Gabapentin 300 MG CAPSULE PO SCH ×3 (08:02→20:48)
[2021-02-12] MEDS: Sennosides/Docusate Sodium TABLET PO SCH ×2 (08:02→20:49)
[2021-02-12] MEDS: Carbamide Peroxide 150 DROP/15 ML BOTTLE RIGHT EAR SCH (08:08)
[2021-02-12] MEDS: Carbamide Peroxide 150 DROP/15 ML BOTTLE LEFT EAR SCH (08:08)
[2021-02-12] MEDS: Nystatin POWDER 30 GM BOTTLE TP SCH ×2 (08:09→20:51)
[2021-02-13] MEDS: *HR* OxyCODONE Immed Rel 5 MG TABLET PO PRN ×3 (06:02→19:55)
[2021-02-13] MEDS: *HR* Heparin 5,000 UNIT/ML VIAL SQ SCH ×3 (06:03→21:16)
[2021-02-13] MEDS: Bumetanide 1 MG TABLET PO SCH ×2 (08:34→16:05)
[2021-02-13] MEDS: Sennosides/Docusate Sodium TABLET PO SCH ×2 (08:34→19:55)
[2021-02-13] MEDS: Gabapentin 300 MG CAPSULE PO SCH ×3 (08:35→19:54)
[2021-02-13] MEDS: Famotidine 20 MG TABLET PO SCH ×2 (08:35→19:55)
[2021-02-13] MEDS: Nystatin POWDER 30 GM BOTTLE TP SCH ×2 (08:35→19:56)
[2021-02-13] MEDS: Carbamide Peroxide 150 DROP/15 ML BOTTLE RIGHT EAR SCH (08:36)
[2021-02-13] MEDS: Carbamide Peroxide 150 DROP/15 ML BOTTLE LEFT EAR SCH (08:36)
[2021-02-13] MEDS: Simethicone 80 MG TAB.CHEW PO PRN (08:41)
[2021-02-14] MEDS: *HR* Heparin 5,000 UNIT/ML VIAL SQ SCH ×3 (05:37→21:15)
[2021-02-14] MEDS: *HR* OxyCODONE Immed Rel 5 MG TABLET PO PRN ×2 (05:38→18:07)
[2021-02-14] MEDS: Sennosides/Docusate Sodium TABLET PO SCH ×2 (08:40→21:15)
[2021-02-14] MEDS: Bumetanide 1 MG TABLET PO SCH ×2 (08:41→18:08)
[2021-02-14] MEDS: Gabapentin 300 MG CAPSULE PO SCH ×3 (08:41→21:15)
[2021-02-14] MEDS: Famotidine 20 MG TABLET PO SCH ×2 (08:41→21:15)
[2021-02-14] MEDS: Nystatin POWDER 30 GM BOTTLE TP SCH ×2 (09:00→21:16)
[2021-02-14] MEDS: Carbamide Peroxide 150 DROP/15 ML BOTTLE LEFT EAR SCH (09:01)
[2021-02-14] MEDS: Carbamide Peroxide 150 DROP/15 ML BOTTLE RIGHT EAR SCH (09:02)
[2021-02-15] MEDS: *HR* Heparin 5,000 UNIT/ML VIAL SQ SCH ×3 (05:42→22:28)
[2021-02-15] MEDS: Sennosides/Docusate Sodium TABLET PO SCH ×2 (08:11→19:41)
[2021-02-15] MEDS: *HR* OxyCODONE Immed Rel 5 MG TABLET PO PRN ×2 (08:11→16:17)
[2021-02-15] MEDS: Famotidine 20 MG TABLET PO SCH ×2 (08:11→19:41)
[2021-02-15] MEDS: Bumetanide 1 MG TABLET PO SCH ×2 (08:11→16:17)
[2021-02-15] MEDS: Gabapentin 300 MG CAPSULE PO SCH ×3 (08:11→19:40)
[2021-02-15] MEDS: Nystatin POWDER 30 GM BOTTLE TP SCH ×2 (10:54→19:41)
[2021-02-15] MEDS: Carbamide Peroxide 150 DROP/15 ML BOTTLE LEFT EAR SCH (10:54)
[2021-02-15] MEDS: Carbamide Peroxide 150 DROP/15 ML BOTTLE RIGHT EAR SCH (10:54)
[2021-02-16] MEDS: *HR* Heparin 5,000 UNIT/ML VIAL SQ SCH ×3 (05:21→21:30)
[2021-02-16] MEDS: Gabapentin 300 MG CAPSULE PO SCH ×2 (09:03→14:39)
[2021-02-16] MEDS: Bumetanide 1 MG TABLET PO SCH ×2 (09:03→16:05)
[2021-02-16] MEDS: Famotidine 20 MG TABLET PO SCH ×2 (09:03→21:30)
[2021-02-16] MEDS: Sennosides/Docusate Sodium TABLET PO SCH ×2 (09:03→21:30)
[2021-02-16] MEDS: Nystatin POWDER 30 GM BOTTLE TP SCH ×2 (09:04→21:30)
[2021-02-16] MEDS: Carbamide Peroxide 150 DROP/15 ML BOTTLE LEFT EAR SCH (09:05)
[2021-02-16] MEDS: Carbamide Peroxide 150 DROP/15 ML BOTTLE RIGHT EAR SCH (09:05)
[2021-02-16 13:12] LABS: Bilirubin,Urine Negative (Negative); Blood,Urine Small (Negative); Clarity,Urine Clear (Clear); Color,Urine Yellow (Yellow); Glucose,Urine (UA) Normal (Normal); Ketones,Urine Negative (Negative); Leukocyte Esterase,Urine Negative (Negative); Nitrite,Urine Negative (Negative); PH,Urine 5.5 pH Units (5.0-8.0); Protein,Urine Negative (Neg-Trace); Specific Gravity,Urine >= 1.030 (1.010-1.025); Urobilinogen,Urine Normal (Normal)
[2021-02-16 13:53] LABS: Amorphous Sediment,Urine Few per hpf (None-Few); Bacteria,Urine Moderate per hpf (None-Few); Calcium Oxalate Crystals,Urine Present per hpf; Hyaline Casts,Urine Moderate per lpf (None Seen); Squamous Epithelial Cell,Urine Few per hpf (None-Few)
[2021-02-17] MEDS: Carbamide Peroxide 150 DROP/15 ML BOTTLE RIGHT EAR SCH (10:23)
[2021-02-17] MEDS: Nystatin POWDER 30 GM BOTTLE TP SCH ×2 (10:23→22:57)
[2021-02-17] MEDS: Carbamide Peroxide 150 DROP/15 ML BOTTLE LEFT EAR SCH (10:23)
[2021-02-17] MEDS ORDERED: Ipratropium/Albuterol Neb 3 ML IH PRN (12:18)
[2021-02-17] MEDS ORDERED: Ondansetron ODT 4 MG TAB.RAPDIS SL PRN (12:21)
[2021-02-17] MEDS: *HR* Heparin 5,000 UNIT/ML VIAL SQ SCH ×3 (14:50→22:59)
[2021-02-17] MEDS: Gabapentin 300 MG CAPSULE PO SCH ×2 (14:52→22:56)
[2021-02-17] MEDS: Bumetanide 1 MG TABLET PO SCH (17:44)
[2021-02-17] MEDS: Sennosides/Docusate Sodium TABLET PO SCH (22:56)
[2021-02-17] MEDS: *HR* OxyCODONE Immed Rel 5 MG TABLET PO PRN (22:56)
[2021-02-17] MEDS: Famotidine 20 MG TABLET PO SCH (22:57)
[2021-02-18] MEDS: *HR* Heparin 5,000 UNIT/ML VIAL SQ SCH ×3 (06:11→21:36)
[2021-02-18] MEDS: Nystatin POWDER 30 GM BOTTLE TP SCH ×2 (11:00→21:37)
[2021-02-18] MEDS: Carbamide Peroxide 150 DROP/15 ML BOTTLE LEFT EAR SCH (11:00)
[2021-02-18] MEDS: Carbamide Peroxide 150 DROP/15 ML BOTTLE RIGHT EAR SCH (11:00)
[2021-02-18] MEDS: Gabapentin 300 MG CAPSULE PO SCH ×3 (11:00→21:36)
[2021-02-18] MEDS: Bumetanide 1 MG TABLET PO SCH ×2 (11:00→17:27)
[2021-02-18] MEDS: Sennosides/Docusate Sodium TABLET PO SCH ×2 (11:01→21:36)
[2021-02-18] MEDS: Famotidine 20 MG TABLET PO SCH ×2 (11:01→21:36)
[2021-02-19] MEDS: *HR* Heparin 5,000 UNIT/ML VIAL SQ SCH ×3 (06:05→22:30)
[2021-02-19] MEDS: Bumetanide 1 MG TABLET PO SCH ×2 (09:33→17:03)
[2021-02-19] MEDS: Famotidine 20 MG TABLET PO SCH ×2 (09:34→19:32)
[2021-02-19] MEDS: Carbamide Peroxide 150 DROP/15 ML BOTTLE RIGHT EAR SCH (09:34)
[2021-02-19] MEDS: Nystatin POWDER 30 GM BOTTLE TP SCH ×2 (09:34→19:32)
[2021-02-19] MEDS: Carbamide Peroxide 150 DROP/15 ML BOTTLE LEFT EAR SCH (09:34)
[2021-02-19] MEDS: Gabapentin 300 MG CAPSULE PO SCH ×3 (09:34→19:31)
[2021-02-19] MEDS: Sennosides/Docusate Sodium TABLET PO SCH ×2 (09:34→19:32)
[2021-02-20] MEDS: *HR* Heparin 5,000 UNIT/ML VIAL SQ SCH ×3 (05:57→21:45)
[2021-02-20] MEDS: Bumetanide 1 MG TABLET PO SCH ×2 (09:01→16:32)
[2021-02-20] MEDS: Sennosides/Docusate Sodium TABLET PO SCH ×2 (09:01→19:33)
[2021-02-20] MEDS: Gabapentin 300 MG CAPSULE PO SCH ×3 (09:01→19:33)
[2021-02-20] MEDS: *HR* OxyCODONE Immed Rel 5 MG TABLET PO PRN ×2 (09:02→16:32)
[2021-02-20] MEDS: Famotidine 20 MG TABLET PO SCH ×2 (09:02→19:33)
[2021-02-20] MEDS: Nystatin POWDER 30 GM BOTTLE TP SCH ×2 (09:03→19:33)
[2021-02-20] MEDS: Carbamide Peroxide 150 DROP/15 ML BOTTLE RIGHT EAR SCH (09:03)
[2021-02-20] MEDS: Carbamide Peroxide 150 DROP/15 ML BOTTLE LEFT EAR SCH (09:03)
[2021-02-20] MEDS: Simethicone 80 MG TAB.CHEW PO PRN (14:37)
[2021-02-21] MEDS: *HR* OxyCODONE Immed Rel 5 MG TABLET PO PRN ×3 (01:32→20:38)
[2021-02-21] MEDS: *HR* Heparin 5,000 UNIT/ML VIAL SQ SCH ×3 (05:50→20:38)
[2021-02-21 07:32] LABS: Basophils # 0.1 K/mcL (0.0-0.2); Basophils % 0.9 %; Eosinophils # 0.8 K/mcL (0.0-0.6); Eosinophils % 5.2 %; Hematocrit 44.5 % (37.5-50.1); Hemoglobin 14.7 g/dL (12.9-16.9); Lymphocytes # 4.9 K/mcL (0.6-4.6); Lymphocytes % 33.3 %; Mean Corpuscular Volume 87.8 fL (83.0-100.0); Mean Platelet Volume 10.5 fL (9.4-12.4); Monocytes # 0.8 K/mcL (0.0-1.3); Monocytes % 5.7 %; Neutrophils # 7.9 K/mcL (1.6-8.9); Platelet Count 329 K/mcL (140-400); Red Blood Count 5.07 M/mcL (4.19-5.50); Red Cell Distribution Width 14.3 % (11.5-14.5); Segmented Neutrophils % 53.9 %; White Blood Count 14.7 K/mcL (4.3-11.1)
[2021-02-21] MEDS: Sennosides/Docusate Sodium TABLET PO SCH ×2 (07:41→20:39)
[2021-02-21] MEDS: Gabapentin 300 MG CAPSULE PO SCH ×3 (07:41→20:39)
[2021-02-21] MEDS: Bumetanide 1 MG TABLET PO SCH ×2 (07:41→15:08)
[2021-02-21] MEDS: Famotidine 20 MG TABLET PO SCH ×2 (07:41→20:39)
[2021-02-21 07:42] LABS: BUN/Creatinine Ratio 10 (6-26); Blood Urea Nitrogen 10 mg/dL (6-20); Calcium 9.5 mg/dL (8.6-10.3); Carbon Dioxide 32 mEq/L (23-29); Chloride 96 mEq/L (98-107); Glucose 106 mg/dL (70-105); Osmolality,Calculated 283 (280-300); Potassium 3.3 mEq/L (3.5-5.1); Sodium 137 mEq/L (136-145); eGFR For African Americans > 60 (> 60); eGFR For Non-African Americans > 60 (> 60)
[2021-02-21] MEDS: Nystatin POWDER 30 GM BOTTLE TP SCH ×2 (07:42→20:46)
[2021-02-21] MEDS: Carbamide Peroxide 150 DROP/15 ML BOTTLE LEFT EAR SCH (07:42)
[2021-02-21] MEDS: Carbamide Peroxide 150 DROP/15 ML BOTTLE RIGHT EAR SCH (07:42)
[2021-02-22] MEDS: *HR* Heparin 5,000 UNIT/ML VIAL SQ SCH ×3 (05:17→19:37)
[2021-02-22] MEDS: *HR* OxyCODONE Immed Rel 5 MG TABLET PO PRN ×3 (05:17→17:21)
[2021-02-22] MEDS: Gabapentin 300 MG CAPSULE PO SCH ×3 (09:56→19:37)
[2021-02-22] MEDS: Simethicone 80 MG TAB.CHEW PO PRN ×2 (09:57→15:57)
[2021-02-22] MEDS: Sennosides/Docusate Sodium TABLET PO SCH ×2 (09:58→19:37)
[2021-02-22] MEDS: Famotidine 20 MG TABLET PO SCH ×2 (09:58→19:37)
[2021-02-22] MEDS: Bumetanide 1 MG TABLET PO SCH ×2 (09:59→16:41)
[2021-02-22] MEDS: Nystatin POWDER 30 GM BOTTLE TP SCH ×2 (12:10→19:37)
[2021-02-22] MEDS: Carbamide Peroxide 150 DROP/15 ML BOTTLE LEFT EAR SCH (12:10)
[2021-02-22] MEDS: Carbamide Peroxide 150 DROP/15 ML BOTTLE RIGHT EAR SCH (12:10)
[2021-02-22] MEDS: methocarbamoL 500 MG TABLET PO PRN (14:26)
[2021-02-23] MEDS: *HR* Heparin 5,000 UNIT/ML VIAL SQ SCH ×4 (05:03→19:33)
[2021-02-23] MEDS: Gabapentin 300 MG CAPSULE PO SCH ×3 (09:27→19:33)
[2021-02-23] MEDS: Sennosides/Docusate Sodium TABLET PO SCH ×2 (09:28→19:33)
[2021-02-23] MEDS: Famotidine 20 MG TABLET PO SCH ×2 (09:28→19:33)
[2021-02-23] MEDS: Bumetanide 1 MG TABLET PO SCH ×2 (09:28→16:56)
[2021-02-23] MEDS: Carbamide Peroxide 150 DROP/15 ML BOTTLE LEFT EAR SCH (09:29)
[2021-02-23] MEDS: Carbamide Peroxide 150 DROP/15 ML BOTTLE RIGHT EAR SCH (09:29)
[2021-02-23] MEDS: Nystatin POWDER 30 GM BOTTLE TP SCH ×2 (09:30→19:33)
[2021-02-23 16:31] LABS: Bilirubin,Urine Negative (Negative); Blood,Urine Large (Negative); Clarity,Urine Cloudy (Clear); Color,Urine Yellow (Yellow); Glucose,Urine (UA) Normal (Normal); Ketones,Urine Negative (Negative); Leukocyte Esterase,Urine Large (Negative); Nitrite,Urine Positive (Negative); PH,Urine 6.5 pH Units (5.0-8.0); Protein,Urine 30 mg/dL (Neg-Trace); Specific Gravity,Urine 1.015 (1.010-1.025); Urobilinogen,Urine Normal (Normal)
[2021-02-23 16:39] LABS: Amorphous Sediment,Urine Moderate per hpf (None-Few); Bacteria,Urine Moderate per hpf (None-Few); RBC,Urine 15-30 per hpf (0-3); Squamous Epithelial Cell,Urine Few per hpf (None-Few)
[2021-02-24] MEDS: *HR* Heparin 5,000 UNIT/ML VIAL SQ SCH ×3 (05:33→21:05)
[2021-02-24] MEDS: Bumetanide 1 MG TABLET PO SCH ×2 (08:38→16:48)
[2021-02-24] MEDS: Sennosides/Docusate Sodium TABLET PO SCH ×2 (08:38→21:05)
[2021-02-24] MEDS: Gabapentin 300 MG CAPSULE PO SCH ×3 (08:38→21:04)
[2021-02-24] MEDS: Famotidine 20 MG TABLET PO SCH ×2 (08:38→21:05)
[2021-02-24] MEDS: Carbamide Peroxide 150 DROP/15 ML BOTTLE LEFT EAR SCH (08:44)
[2021-02-24] MEDS: Carbamide Peroxide 150 DROP/15 ML BOTTLE RIGHT EAR SCH (08:44)
[2021-02-24] MEDS: Nystatin POWDER 30 GM BOTTLE TP SCH ×2 (08:45→21:05)
[2021-02-24 21:50] LABS: Basophils # 0.1 K/mcL (0.0-0.2); Basophils % 0.7 %; Eosinophils % 3.6 %; Hematocrit 46.1 % (37.5-50.1); Hemoglobin 15.4 g/dL (12.9-16.9); Immature Granulocytes % 0.7 % (0-4); Lymphocytes # 3.7 K/mcL (0.6-4.6); Lymphocytes % 24.6 %; Mean Corpuscular HGB Conc 33.4 g/dL (31.6-35.5); Mean Corpuscular Hemoglobin 28.8 pg (28.0-33.3); Mean Corpuscular Volume 86.2 fL (83.0-100.0); Mean Platelet Volume 10.1 fL (9.4-12.4); Monocytes % 6.5 %; Neutrophils # 9.7 K/mcL (1.6-8.9); Platelet Count 338 K/mcL (140-400); Red Blood Count 5.35 M/mcL (4.19-5.50); Segmented Neutrophils % 63.9 %; White Blood Count 15.2 K/mcL (4.3-11.1)
[2021-02-24 21:51] LABS: Eosinophils # 0.6 K/mcL (0.0-0.6)
[2021-02-24 22:09] LABS: BUN/Creatinine Ratio 11 (6-26); Blood Urea Nitrogen 10 mg/dL (6-20); Calcium 9.9 mg/dL (8.6-10.3); Carbon Dioxide 31 mEq/L (23-29); Chloride 98 mEq/L (98-107); Glucose 109 mg/dL (70-105); Osmolality,Calculated 288 (280-300); Potassium 3.4 mEq/L (3.5-5.1); Sodium 139 mEq/L (136-145); Troponin I < 0.03 ng/mL (< 0.04); eGFR For African Americans > 60 (> 60); eGFR For Non-African Americans > 60 (> 60)
[2021-02-24 22:13] LABS: INR 1.2; Prothrombin Time 13.8 Seconds (9.4-12.1)
[2021-02-24] MEDS ORDERED: Isovue-370 500 ML BOTTLE IVP ONE (23:05)
[2021-02-25] MEDS: *HR* Heparin 5,000 UNIT/ML VIAL SQ SCH ×3 (05:36→21:38)
[2021-02-25] MEDS: Gabapentin 300 MG CAPSULE PO SCH ×3 (12:00→21:33)
[2021-02-25] MEDS: Bumetanide 1 MG TABLET PO SCH ×2 (12:10→18:41)
[2021-02-25] MEDS: Sennosides/Docusate Sodium TABLET PO SCH ×2 (18:43→21:38)
[2021-02-25] MEDS: Famotidine 20 MG TABLET PO SCH ×2 (18:43→21:38)
[2021-02-25] MEDS: Nystatin POWDER 30 GM BOTTLE TP SCH ×2 (18:44→21:38)
[2021-02-25] MEDS: Carbamide Peroxide 150 DROP/15 ML BOTTLE LEFT EAR SCH (18:44)
[2021-02-25] MEDS: Carbamide Peroxide 150 DROP/15 ML BOTTLE RIGHT EAR SCH (18:44)
[2021-02-26] MEDS: *HR* OxyCODONE Immed Rel 5 MG TABLET PO PRN ×3 (06:28→21:37)
[2021-02-26] MEDS: *HR* Heparin 5,000 UNIT/ML VIAL SQ SCH ×3 (06:28→21:37)
[2021-02-26] MEDS: Gabapentin 300 MG CAPSULE PO SCH ×3 (11:43→21:38)
[2021-02-26] MEDS: Sennosides/Docusate Sodium TABLET PO SCH ×2 (11:44→21:37)
[2021-02-26] MEDS: Famotidine 20 MG TABLET PO SCH ×2 (11:44→21:38)
[2021-02-26] MEDS: Bumetanide 1 MG TABLET PO SCH ×2 (11:44→17:21)
[2021-02-26] MEDS: Carbamide Peroxide 150 DROP/15 ML BOTTLE RIGHT EAR SCH (11:45)
[2021-02-26] MEDS: Nystatin POWDER 30 GM BOTTLE TP SCH ×2 (11:45→23:22)
[2021-02-26] MEDS: Carbamide Peroxide 150 DROP/15 ML BOTTLE LEFT EAR SCH (11:45)
[2021-02-26] MEDS: Simethicone 80 MG TAB.CHEW PO PRN (22:49)
[2021-02-27] MEDS: *HR* Heparin 5,000 UNIT/ML VIAL SQ SCH ×3 (05:57→20:46)
[2021-02-27] MEDS: Famotidine 20 MG TABLET PO SCH ×2 (09:38→20:46)
[2021-02-27] MEDS: Sennosides/Docusate Sodium TABLET PO SCH ×2 (09:38→20:46)
[2021-02-27] MEDS: Gabapentin 300 MG CAPSULE PO SCH ×3 (09:38→20:46)
[2021-02-27] MEDS: Bumetanide 1 MG TABLET PO SCH ×2 (09:39→16:41)
[2021-02-27] MEDS: *HR* OxyCODONE Immed Rel 5 MG TABLET PO PRN ×3 (09:44→20:46)
[2021-02-27] MEDS: Nystatin POWDER 30 GM BOTTLE TP SCH ×2 (10:05→20:47)
[2021-02-27] MEDS: Carbamide Peroxide 150 DROP/15 ML BOTTLE RIGHT EAR SCH (10:06)
[2021-02-27] MEDS: Carbamide Peroxide 150 DROP/15 ML BOTTLE LEFT EAR SCH (10:06)
[2021-02-27] MEDS: Nitrofurantoin (BID) 100 MG CAPSULE PO SCH (16:40)
[2021-02-27] MEDS: Simethicone 80 MG TAB.CHEW PO PRN (20:50)
[2021-02-28] MEDS: *HR* OxyCODONE Immed Rel 5 MG TABLET PO PRN ×4 (03:02→20:38)
[2021-02-28] MEDS: *HR* Heparin 5,000 UNIT/ML VIAL SQ SCH ×3 (06:32→20:39)
[2021-02-28] MEDS: Nitrofurantoin (BID) 100 MG CAPSULE PO SCH ×2 (08:59→16:01)
[2021-02-28] MEDS: Famotidine 20 MG TABLET PO SCH ×2 (08:59→20:37)
[2021-02-28] MEDS: methocarbamoL 500 MG TABLET PO PRN ×2 (08:59→20:38)
[2021-02-28] MEDS: Bumetanide 1 MG TABLET PO SCH ×2 (08:59→16:01)
[2021-02-28] MEDS: Sennosides/Docusate Sodium TABLET PO SCH ×2 (08:59→20:38)
[2021-02-28] MEDS: Gabapentin 300 MG CAPSULE PO SCH ×3 (08:59→20:38)
[2021-02-28] MEDS: Methyl Salicylate/Menthol 85 APPL/85 GM TUBE TP PRN (09:00)
[2021-02-28] MEDS: Carbamide Peroxide 150 DROP/15 ML BOTTLE LEFT EAR SCH (09:00)
[2021-02-28] MEDS: Carbamide Peroxide 150 DROP/15 ML BOTTLE RIGHT EAR SCH (09:00)
[2021-02-28] MEDS: Nystatin POWDER 30 GM BOTTLE TP SCH ×2 (09:00→20:39)
[2021-03-01] MEDS: *HR* Heparin 5,000 UNIT/ML VIAL SQ SCH ×2 (06:26→14:35)
[2021-03-01] MEDS: *HR* OxyCODONE Immed Rel 5 MG TABLET PO PRN ×3 (06:30→18:21)
[2021-03-01] MEDS: Gabapentin 300 MG CAPSULE PO SCH ×3 (08:22→21:57)
[2021-03-01] MEDS: Bumetanide 1 MG TABLET PO SCH ×2 (08:22→18:21)
[2021-03-01] MEDS: Famotidine 20 MG TABLET PO SCH ×2 (08:22→21:58)
[2021-03-01] MEDS: Nystatin POWDER 30 GM BOTTLE TP SCH ×2 (08:23→22:05)
[2021-03-01] MEDS: Nitrofurantoin (BID) 100 MG CAPSULE PO SCH ×2 (08:23→18:21)
[2021-03-01] MEDS: Sennosides/Docusate Sodium TABLET PO SCH ×2 (08:23→21:56)
[2021-03-01] MEDS: Carbamide Peroxide 150 DROP/15 ML BOTTLE LEFT EAR SCH (14:50)
[2021-03-01] MEDS: Carbamide Peroxide 150 DROP/15 ML BOTTLE RIGHT EAR SCH (14:50)
[2021-03-02] MEDS: *HR* Heparin 5,000 UNIT/ML VIAL SQ SCH ×4 (05:12→20:50)
[2021-03-02] MEDS: Gabapentin 300 MG CAPSULE PO SCH ×3 (08:48→20:50)
[2021-03-02] MEDS: Sennosides/Docusate Sodium TABLET PO SCH ×2 (08:48→20:50)
[2021-03-02] MEDS: Bumetanide 1 MG TABLET PO SCH ×2 (08:49→18:23)
[2021-03-02] MEDS: Famotidine 20 MG TABLET PO SCH ×2 (08:49→20:50)
[2021-03-02] MEDS: Nitrofurantoin (BID) 100 MG CAPSULE PO SCH ×2 (08:49→18:23)
[2021-03-02] MEDS: Nystatin POWDER 30 GM BOTTLE TP SCH ×2 (08:50→20:50)
[2021-03-02] MEDS: Carbamide Peroxide 150 DROP/15 ML BOTTLE RIGHT EAR SCH (08:51)
[2021-03-02] MEDS: Carbamide Peroxide 150 DROP/15 ML BOTTLE LEFT EAR SCH (08:51)
[2021-03-02] MEDS: *HR* OxyCODONE Immed Rel 5 MG TABLET PO PRN ×2 (12:05→20:49)
[2021-03-02] MEDS: Simethicone 80 MG TAB.CHEW PO PRN ×2 (14:30→20:50)
[2021-03-03] MEDS: *HR* Heparin 5,000 UNIT/ML VIAL SQ SCH ×4 (06:36→20:42)
[2021-03-03] MEDS: *HR* OxyCODONE Immed Rel 5 MG TABLET PO PRN ×4 (06:37→20:41)
[2021-03-03] MEDS: Famotidine 20 MG TABLET PO SCH ×2 (11:28→20:41)
[2021-03-03] MEDS: Bumetanide 1 MG TABLET PO SCH ×2 (11:29→16:31)
[2021-03-03] MEDS: Nystatin POWDER 30 GM BOTTLE TP SCH ×2 (11:29→20:42)
[2021-03-03] MEDS: Nitrofurantoin (BID) 100 MG CAPSULE PO SCH ×2 (11:29→16:30)
[2021-03-03] MEDS: Gabapentin 300 MG CAPSULE PO SCH ×3 (11:29→20:40)
[2021-03-03] MEDS: Carbamide Peroxide 150 DROP/15 ML BOTTLE RIGHT EAR SCH (11:38)
[2021-03-03] MEDS: Carbamide Peroxide 150 DROP/15 ML BOTTLE LEFT EAR SCH (11:38)
[2021-03-03] MEDS: Sennosides/Docusate Sodium TABLET PO SCH ×2 (11:39→20:40)
[2021-03-03] MEDS: Simethicone 80 MG TAB.CHEW PO PRN (16:30)
[2021-03-04] MEDS: *HR* Heparin 5,000 UNIT/ML VIAL SQ SCH ×3 (05:29→22:48)
[2021-03-04] MEDS: *HR* OxyCODONE Immed Rel 5 MG TABLET PO PRN ×2 (09:22→15:26)
[2021-03-04] MEDS: Nitrofurantoin (BID) 100 MG CAPSULE PO SCH ×2 (09:23→16:51)
[2021-03-04] MEDS: Gabapentin 300 MG CAPSULE PO SCH ×3 (09:23→22:48)
[2021-03-04] MEDS: Famotidine 20 MG TABLET PO SCH ×2 (09:23→22:49)
[2021-03-04] MEDS: Bumetanide 1 MG TABLET PO SCH ×2 (09:24→16:51)
[2021-03-04] MEDS: Sennosides/Docusate Sodium TABLET PO SCH ×2 (09:24→22:48)
[2021-03-04] MEDS: Nystatin POWDER 30 GM BOTTLE TP SCH ×2 (09:25→22:49)
[2021-03-04] MEDS: Carbamide Peroxide 150 DROP/15 ML BOTTLE LEFT EAR SCH (09:28)
[2021-03-04] MEDS: Carbamide Peroxide 150 DROP/15 ML BOTTLE RIGHT EAR SCH (09:28)
[2021-03-04] MEDS: methocarbamoL 500 MG TABLET PO PRN (15:26)
[2021-03-04] MEDS: Simethicone 80 MG TAB.CHEW PO PRN ×2 (15:26→23:00)
[2021-03-05] MEDS: *HR* Heparin 5,000 UNIT/ML VIAL SQ SCH ×3 (05:52→22:06)
[2021-03-05] MEDS: *HR* OxyCODONE Immed Rel 5 MG TABLET PO PRN ×2 (08:51→16:05)
[2021-03-05] MEDS: Famotidine 20 MG TABLET PO SCH ×2 (08:52→22:06)
[2021-03-05] MEDS: Bumetanide 1 MG TABLET PO SCH ×2 (08:52→16:05)
[2021-03-05] MEDS: Nitrofurantoin (BID) 100 MG CAPSULE PO SCH ×2 (08:52→16:05)
[2021-03-05] MEDS: Gabapentin 300 MG CAPSULE PO SCH ×3 (08:52→22:06)
[2021-03-05] MEDS: Nystatin POWDER 30 GM BOTTLE TP SCH ×2 (08:53→22:07)
[2021-03-05] MEDS: Sennosides/Docusate Sodium TABLET PO SCH ×2 (08:53→22:06)
[2021-03-05] MEDS: Carbamide Peroxide 150 DROP/15 ML BOTTLE LEFT EAR SCH (08:55)
[2021-03-05] MEDS: Carbamide Peroxide 150 DROP/15 ML BOTTLE RIGHT EAR SCH (08:55)
[2021-03-05] MEDS ORDERED: Bisacodyl 10 MG RECTAL SUPPOSITORY RC PRN (09:16)
[2021-03-06] MEDS: *HR* OxyCODONE Immed Rel 5 MG TABLET PO PRN ×3 (01:58→15:03)
[2021-03-06] MEDS: Simethicone 80 MG TAB.CHEW PO PRN ×2 (02:05→20:23)
[2021-03-06] MEDS: *HR* Heparin 5,000 UNIT/ML VIAL SQ SCH ×3 (05:35→20:23)
[2021-03-06] MEDS: Nitrofurantoin (BID) 100 MG CAPSULE PO SCH ×2 (09:05→17:30)
[2021-03-06] MEDS: Gabapentin 300 MG CAPSULE PO SCH ×3 (09:06→20:23)
[2021-03-06] MEDS: Sennosides/Docusate Sodium TABLET PO SCH ×2 (09:06→20:23)
[2021-03-06] MEDS: Bumetanide 1 MG TABLET PO SCH ×2 (09:06→17:30)
[2021-03-06] MEDS: Famotidine 20 MG TABLET PO SCH ×2 (09:06→20:23)
[2021-03-06] MEDS: Nystatin POWDER 30 GM BOTTLE TP SCH ×2 (09:07→20:24)
[2021-03-06] MEDS: Carbamide Peroxide 150 DROP/15 ML BOTTLE LEFT EAR SCH (09:07)
[2021-03-06] MEDS: Carbamide Peroxide 150 DROP/15 ML BOTTLE RIGHT EAR SCH (09:07)
[2021-03-07] MEDS: *HR* OxyCODONE Immed Rel 5 MG TABLET PO PRN ×4 (00:30→19:52)
[2021-03-07] MEDS: *HR* Heparin 5,000 UNIT/ML VIAL SQ SCH ×3 (06:40→20:28)
[2021-03-07] MEDS: Bumetanide 1 MG TABLET PO SCH ×2 (09:28→15:51)
[2021-03-07] MEDS: Gabapentin 300 MG CAPSULE PO SCH ×3 (09:29→19:46)
[2021-03-07] MEDS: Famotidine 20 MG TABLET PO SCH ×2 (09:29→19:46)
[2021-03-07] MEDS: Sennosides/Docusate Sodium TABLET PO SCH ×2 (09:30→19:46)
[2021-03-07] MEDS: Carbamide Peroxide 150 DROP/15 ML BOTTLE LEFT EAR SCH (09:31)
[2021-03-07] MEDS: Carbamide Peroxide 150 DROP/15 ML BOTTLE RIGHT EAR SCH (09:32)
[2021-03-07] MEDS: Nystatin POWDER 30 GM BOTTLE TP SCH ×2 (09:33→19:48)
[2021-03-07] MEDS: Simethicone 80 MG TAB.CHEW PO PRN (12:27)
[2021-03-08] MEDS: *HR* OxyCODONE Immed Rel 5 MG TABLET PO PRN ×3 (05:11→20:57)
[2021-03-08] MEDS: methocarbamoL 500 MG TABLET PO PRN (05:11)
[2021-03-08] MEDS: *HR* Heparin 5,000 UNIT/ML VIAL SQ SCH ×3 (05:21→20:57)
[2021-03-08] MEDS: Simethicone 80 MG TAB.CHEW PO PRN (05:39)
[2021-03-08] MEDS: Sennosides/Docusate Sodium TABLET PO SCH ×2 (11:58→20:57)
[2021-03-08] MEDS: Bumetanide 1 MG TABLET PO SCH ×2 (11:58→15:11)
[2021-03-08] MEDS: Gabapentin 300 MG CAPSULE PO SCH ×3 (11:58→20:57)
[2021-03-08] MEDS: Famotidine 20 MG TABLET PO SCH ×2 (11:58→20:57)
[2021-03-08] MEDS: Carbamide Peroxide 150 DROP/15 ML BOTTLE RIGHT EAR SCH (11:59)
[2021-03-08] MEDS: Nystatin POWDER 30 GM BOTTLE TP SCH ×2 (11:59→20:57)
[2021-03-08] MEDS: Carbamide Peroxide 150 DROP/15 ML BOTTLE LEFT EAR SCH (11:59)
[2021-03-08 12:37] LABS: Basophils # 0.1 K/mcL (0.0-0.2); Eosinophils # 0.6 K/mcL (0.0-0.6); Eosinophils % 4.7 %; Hematocrit 46.1 % (37.5-50.1); Hemoglobin 15.6 g/dL (12.9-16.9); Immature Granulocytes % 1.2 % (0-4); Lymphocytes # 2.7 K/mcL (0.6-4.6); Lymphocytes % 21.4 %; Mean Corpuscular HGB Conc 33.8 g/dL (31.6-35.5); Mean Corpuscular Hemoglobin 29.1 pg (28.0-33.3); Monocytes # 0.7 K/mcL (0.0-1.3); Monocytes % 5.6 %; Neutrophils # 8.3 K/mcL (1.6-8.9); Platelet Count 320 K/mcL (140-400); Red Blood Count 5.36 M/mcL (4.19-5.50); Red Cell Distribution Width 13.5 % (11.5-14.5); Segmented Neutrophils % 66.1 %; White Blood Count 12.5 K/mcL (4.3-11.1)
[2021-03-08 12:53] LABS: BUN/Creatinine Ratio 9 (6-26); Blood Urea Nitrogen 9 mg/dL (6-20); Calcium 9.6 mg/dL (8.6-10.3); Carbon Dioxide 29 mEq/L (23-29); Chloride 96 mEq/L (98-107); Glucose 116 mg/dL (70-105); Osmolality,Calculated 284 (280-300); Potassium 3.2 mEq/L (3.5-5.1); Sodium 137 mEq/L (136-145); eGFR For African Americans > 60 (> 60); eGFR For Non-African Americans > 60 (> 60)
[2021-03-08 18:34] LABS: Bilirubin,Urine Negative (Negative); Blood,Urine Negative (Negative); Clarity,Urine Clear (Clear); Color,Urine Yellow (Yellow); Glucose,Urine (UA) Normal (Normal); Ketones,Urine Negative (Negative); Leukocyte Esterase,Urine Trace (Negative); Nitrite,Urine Negative (Negative); Protein,Urine Negative (Neg-Trace); Specific Gravity,Urine 1.015 (1.010-1.025); Urobilinogen,Urine Normal (Normal)
[2021-03-08 18:41] LABS: Budding Yeast,Urine Moderate per hpf (None Seen)
[2021-03-08 18:43] LABS: Squamous Epithelial Cell,Urine Few per hpf (None-Few)
[2021-03-09] MEDS: *HR* Heparin 5,000 UNIT/ML VIAL SQ SCH ×3 (05:32→21:15)
[2021-03-09] MEDS: *HR* OxyCODONE Immed Rel 5 MG TABLET PO PRN ×4 (05:43→18:54)
[2021-03-09] MEDS: Gabapentin 300 MG CAPSULE PO SCH ×3 (09:19→21:14)
[2021-03-09] MEDS: Bumetanide 1 MG TABLET PO SCH ×2 (09:19→16:45)
[2021-03-09] MEDS: Famotidine 20 MG TABLET PO SCH ×2 (09:20→21:14)
[2021-03-09] MEDS: Sennosides/Docusate Sodium TABLET PO SCH ×2 (09:20→21:14)
[2021-03-09] MEDS: Carbamide Peroxide 150 DROP/15 ML BOTTLE RIGHT EAR SCH (09:22)
[2021-03-09] MEDS: Carbamide Peroxide 150 DROP/15 ML BOTTLE LEFT EAR SCH (09:22)
[2021-03-09] MEDS: Nystatin POWDER 30 GM BOTTLE TP SCH ×2 (09:24→21:16)
[2021-03-09] MEDS: Simethicone 80 MG TAB.CHEW PO PRN ×2 (10:39→21:14)
[2021-03-10] MEDS: *HR* OxyCODONE Immed Rel 5 MG TABLET PO PRN ×4 (06:16→20:51)
[2021-03-10] MEDS: *HR* Heparin 5,000 UNIT/ML VIAL SQ SCH ×3 (06:16→20:52)
[2021-03-10] MEDS: Sennosides/Docusate Sodium TABLET PO SCH ×2 (09:44→20:51)
[2021-03-10] MEDS: Gabapentin 300 MG CAPSULE PO SCH ×3 (09:44→20:51)
[2021-03-10] MEDS: Famotidine 20 MG TABLET PO SCH ×2 (09:45→20:51)
[2021-03-10] MEDS: Simethicone 80 MG TAB.CHEW PO PRN ×2 (09:45→22:07)
[2021-03-10] MEDS: Bumetanide 1 MG TABLET PO SCH ×2 (09:45→16:05)
[2021-03-10] MEDS: Nystatin POWDER 30 GM BOTTLE TP SCH ×2 (09:46→20:52)
[2021-03-10] MEDS: Carbamide Peroxide 150 DROP/15 ML BOTTLE LEFT EAR SCH (09:48)
[2021-03-10] MEDS: Carbamide Peroxide 150 DROP/15 ML BOTTLE RIGHT EAR SCH (09:48)
[2021-03-11] MEDS: *HR* Heparin 5,000 UNIT/ML VIAL SQ SCH ×3 (06:04→22:29)
[2021-03-11] MEDS: *HR* OxyCODONE Immed Rel 5 MG TABLET PO PRN ×4 (06:10→22:28)
[2021-03-11] MEDS: Simethicone 80 MG TAB.CHEW PO PRN (06:23)
[2021-03-11] MEDS: Bumetanide 1 MG TABLET PO SCH ×2 (09:39→16:18)
[2021-03-11] MEDS: Sennosides/Docusate Sodium TABLET PO SCH ×2 (09:39→22:28)
[2021-03-11] MEDS: Famotidine 20 MG TABLET PO SCH ×2 (09:40→22:29)
[2021-03-11] MEDS: Gabapentin 300 MG CAPSULE PO SCH ×3 (09:40→22:28)
[2021-03-11] MEDS: Carbamide Peroxide 150 DROP/15 ML BOTTLE LEFT EAR SCH (09:40)
[2021-03-11] MEDS: Carbamide Peroxide 150 DROP/15 ML BOTTLE RIGHT EAR SCH (09:41)
[2021-03-11] MEDS: Nystatin POWDER 30 GM BOTTLE TP SCH ×2 (09:41→22:29)
[2021-03-12] MEDS: *HR* Heparin 5,000 UNIT/ML VIAL SQ SCH ×3 (06:53→21:25)
[2021-03-12] MEDS: *HR* OxyCODONE Immed Rel 5 MG TABLET PO PRN ×3 (06:59→21:25)
[2021-03-12] MEDS: Sennosides/Docusate Sodium TABLET PO SCH ×2 (08:19→21:25)
[2021-03-12] MEDS: Gabapentin 300 MG CAPSULE PO SCH ×3 (08:19→21:25)
[2021-03-12] MEDS: Bumetanide 1 MG TABLET PO SCH ×2 (08:20→16:14)
[2021-03-12] MEDS: Famotidine 20 MG TABLET PO SCH ×2 (08:20→21:25)
[2021-03-12] MEDS: Nystatin POWDER 30 GM BOTTLE TP SCH ×2 (08:21→21:26)
[2021-03-12] MEDS: Carbamide Peroxide 150 DROP/15 ML BOTTLE LEFT EAR SCH (08:21)
[2021-03-12] MEDS: Carbamide Peroxide 150 DROP/15 ML BOTTLE RIGHT EAR SCH (08:22)
[2021-03-12] MEDS: Simethicone 80 MG TAB.CHEW PO PRN (18:09)
[2021-03-13] MEDS: *HR* Heparin 5,000 UNIT/ML VIAL SQ SCH ×3 (05:26→21:52)
[2021-03-13] MEDS: *HR* OxyCODONE Immed Rel 5 MG TABLET PO PRN ×4 (05:30→21:46)
[2021-03-13] MEDS: Sennosides/Docusate Sodium TABLET PO SCH ×2 (09:01→21:45)
[2021-03-13] MEDS: Acetaminophen 325 MG TABLET PO PRN (09:02)
[2021-03-13] MEDS: Gabapentin 300 MG CAPSULE PO SCH ×3 (09:03→21:45)
[2021-03-13] MEDS: Famotidine 20 MG TABLET PO SCH ×2 (09:04→21:45)
[2021-03-13] MEDS: Bumetanide 1 MG TABLET PO SCH ×2 (09:04→15:17)
[2021-03-13] MEDS: Carbamide Peroxide 150 DROP/15 ML BOTTLE RIGHT EAR SCH (09:06)
[2021-03-13] MEDS: Carbamide Peroxide 150 DROP/15 ML BOTTLE LEFT EAR SCH (09:06)
[2021-03-13] MEDS: methocarbamoL 500 MG TABLET PO PRN (21:46)
[2021-03-13] MEDS: Simethicone 80 MG TAB.CHEW PO PRN (21:50)
[2021-03-14] MEDS: *HR* OxyCODONE Immed Rel 5 MG TABLET PO PRN ×5 (05:17→23:27)
[2021-03-14] MEDS: *HR* Heparin 5,000 UNIT/ML VIAL SQ SCH ×3 (05:21→23:18)
[2021-03-14] MEDS: Simethicone 80 MG TAB.CHEW PO PRN ×3 (05:34→19:29)
[2021-03-14] MEDS: Sennosides/Docusate Sodium TABLET PO SCH ×2 (08:53→19:30)
[2021-03-14] MEDS: methocarbamoL 500 MG TABLET PO PRN ×2 (08:53→19:35)
[2021-03-14] MEDS: Gabapentin 300 MG CAPSULE PO SCH ×3 (08:53→19:30)
[2021-03-14] MEDS: Bumetanide 1 MG TABLET PO SCH ×2 (08:53→17:03)
[2021-03-14] MEDS: Famotidine 20 MG TABLET PO SCH ×2 (08:54→19:30)
[2021-03-14] MEDS: Carbamide Peroxide 150 DROP/15 ML BOTTLE RIGHT EAR SCH (18:19)
[2021-03-14] MEDS: Carbamide Peroxide 150 DROP/15 ML BOTTLE LEFT EAR SCH (18:19)
[2021-03-15] MEDS: *HR* OxyCODONE Immed Rel 5 MG TABLET PO PRN ×4 (05:39→22:28)
[2021-03-15] MEDS: *HR* Heparin 5,000 UNIT/ML VIAL SQ SCH ×3 (05:39→19:59)
[2021-03-15] MEDS: Simethicone 80 MG TAB.CHEW PO PRN ×3 (05:39→17:54)
[2021-03-15] MEDS: Famotidine 20 MG TABLET PO SCH ×2 (07:39→19:53)
[2021-03-15] MEDS: Bumetanide 1 MG TABLET PO SCH ×2 (07:39→17:54)
[2021-03-15] MEDS: Gabapentin 300 MG CAPSULE PO SCH ×3 (07:39→19:54)
[2021-03-15] MEDS: Sennosides/Docusate Sodium TABLET PO SCH ×2 (07:40→19:53)
[2021-03-15] MEDS: Carbamide Peroxide 150 DROP/15 ML BOTTLE LEFT EAR SCH (07:41)
[2021-03-15] MEDS: Carbamide Peroxide 150 DROP/15 ML BOTTLE RIGHT EAR SCH (07:42)
[2021-03-16] MEDS: *HR* Heparin 5,000 UNIT/ML VIAL SQ SCH ×3 (05:06→19:59)
[2021-03-16] MEDS: *HR* OxyCODONE Immed Rel 5 MG TABLET PO PRN ×4 (05:11→18:45)
[2021-03-16] MEDS: Simethicone 80 MG TAB.CHEW PO PRN (06:40)
[2021-03-16] MEDS: Sennosides/Docusate Sodium TABLET PO SCH ×2 (09:38→20:00)
[2021-03-16] MEDS: Famotidine 20 MG TABLET PO SCH ×2 (09:38→19:59)
[2021-03-16] MEDS: Bumetanide 1 MG TABLET PO SCH ×2 (09:39→18:00)
[2021-03-16] MEDS: Gabapentin 300 MG CAPSULE PO SCH ×3 (09:39→19:59)
[2021-03-16] MEDS: Carbamide Peroxide 150 DROP/15 ML BOTTLE LEFT EAR SCH (11:51)
[2021-03-16] MEDS: Carbamide Peroxide 150 DROP/15 ML BOTTLE RIGHT EAR SCH (11:51)
[2021-03-16 12:49] LABS: Adenovirus Not Detected (Not Detect); Bordetella Pertussis Not Detected (Not Detect); Chlamydophila pneumoniae Not Detected (Not Detect); Coronavirus 229E Not Detected (Not Detect); Coronavirus HKU1 Not Detected (Not Detect); Coronavirus NL63 Not Detected (Not Detect); Coronavirus OC43 Not Detected (Not Detect); Human Metapneumovirus Not Detected (Not Detect); Human Rhinovirus/Enterovirus Not Detected (Not Detect); Influenza A Subtype 2009 H1 Not Detected (Not Detect); Influenza B Not Detected (Not Detect); Mycoplasma pneumoniae Not Detected (Not Detect); Parainfluenza Virus 1 Not Detected (Not Detect); Parainfluenza Virus 2 Not Detected (Not Detect); Parainfluenza Virus 3 Not Detected (Not Detect); Parainfluenza Virus 4 Not Detected (Not Detect); Respiratory Syncytial Virus Not Detected (Not Detect); SARS-CoV-2 DETECTED (Not Detect)
[2021-03-16] MEDS ORDERED: Benzonatate 100 MG CAPSULE PO PRN (14:50)
[2021-03-16] MEDS: Acetaminophen 325 MG TABLET PO PRN (18:00)
[2021-03-17] MEDS: *HR* OxyCODONE Immed Rel 5 MG TABLET PO PRN ×5 (02:33→22:11)
[2021-03-17] MEDS: Acetaminophen 325 MG TABLET PO PRN (05:56)
[2021-03-17] MEDS: *HR* Heparin 5,000 UNIT/ML VIAL SQ SCH ×3 (05:57→21:56)
[2021-03-17 08:00] LABS: Basophils # 0.1 K/mcL (0.0-0.2); Basophils % 1.2 %; Eosinophils # 0.4 K/mcL (0.0-0.6); Eosinophils % 4.7 %; Hematocrit 38.8 % (37.5-50.1); Immature Granulocytes % 1.7 % (0-4); Lymphocytes # 2.3 K/mcL (0.6-4.6); Mean Corpuscular HGB Conc 33.5 g/dL (31.6-35.5); Mean Corpuscular Hemoglobin 29.1 pg (28.0-33.3); Mean Corpuscular Volume 86.8 fL (83.0-100.0); Mean Platelet Volume 9.7 fL (9.4-12.4); Monocytes # 0.8 K/mcL (0.0-1.3); Monocytes % 9.7 %; Neutrophils # 4.5 K/mcL (1.6-8.9); Platelet Count 282 K/mcL (140-400); Red Blood Count 4.47 M/mcL (4.19-5.50); Red Cell Distribution Width 13.9 % (11.5-14.5); Segmented Neutrophils % 54.7 %; White Blood Count 8.1 K/mcL (4.3-11.1)
[2021-03-17 08:20] LABS: BUN/Creatinine Ratio 13 (6-26); Blood Urea Nitrogen 10 mg/dL (6-20); Calcium 8.7 mg/dL (8.6-10.3); Carbon Dioxide 30 mEq/L (23-29); Chloride 98 mEq/L (98-107); Glucose 126 mg/dL (70-105); Osmolality,Calculated 285 (280-300); Potassium 3.3 mEq/L (3.5-5.1); Sodium 137 mEq/L (136-145); eGFR For African Americans > 60 (> 60); eGFR For Non-African Americans > 60 (> 60)
[2021-03-17] MEDS: Sennosides/Docusate Sodium TABLET PO SCH ×2 (08:54→21:56)
[2021-03-17] MEDS: Bumetanide 1 MG TABLET PO SCH ×2 (08:54→16:31)
[2021-03-17] MEDS: Famotidine 20 MG TABLET PO SCH ×2 (08:54→21:55)
[2021-03-17] MEDS: Gabapentin 300 MG CAPSULE PO SCH ×3 (08:55→21:55)
[2021-03-18] MEDS: *HR* OxyCODONE Immed Rel 5 MG TABLET PO PRN ×4 (02:06→17:44)
[2021-03-18] MEDS: *HR* Heparin 5,000 UNIT/ML VIAL SQ SCH ×3 (05:56→20:25)
[2021-03-18] MEDS: Famotidine 20 MG TABLET PO SCH ×2 (08:09→20:26)
[2021-03-18] MEDS: Sennosides/Docusate Sodium TABLET PO SCH ×2 (08:09→20:26)
[2021-03-18] MEDS: Gabapentin 300 MG CAPSULE PO SCH ×3 (08:09→20:26)
[2021-03-18] MEDS: Bumetanide 1 MG TABLET PO SCH ×2 (08:09→16:43)
[2021-03-19] MEDS: *HR* OxyCODONE Immed Rel 5 MG TABLET PO PRN ×5 (02:51→21:35)
[2021-03-19] MEDS: *HR* Heparin 5,000 UNIT/ML VIAL SQ SCH ×3 (05:54→21:24)
[2021-03-19] MEDS: Famotidine 20 MG TABLET PO SCH ×2 (07:42→21:24)
[2021-03-19] MEDS: Sennosides/Docusate Sodium TABLET PO SCH ×2 (07:42→21:24)
[2021-03-19] MEDS: Gabapentin 300 MG CAPSULE PO SCH ×3 (07:42→21:24)
[2021-03-19] MEDS: Bumetanide 1 MG TABLET PO SCH ×2 (07:42→17:35)
[2021-03-19] MEDS: Simethicone 80 MG TAB.CHEW PO PRN ×2 (07:58→17:35)
[2021-03-20] MEDS: *HR* OxyCODONE Immed Rel 5 MG TABLET PO PRN ×5 (01:37→19:56)
[2021-03-20] MEDS: *HR* Heparin 5,000 UNIT/ML VIAL SQ SCH ×3 (05:54→21:49)
[2021-03-20] MEDS: Simethicone 80 MG TAB.CHEW PO PRN ×3 (06:19→21:50)
[2021-03-20] MEDS: Gabapentin 300 MG CAPSULE PO SCH ×3 (09:03→19:56)
[2021-03-20] MEDS: Sennosides/Docusate Sodium TABLET PO SCH ×2 (09:03→19:56)
[2021-03-20] MEDS: methocarbamoL 500 MG TABLET PO PRN (09:03)
[2021-03-20] MEDS: Bumetanide 1 MG TABLET PO SCH ×2 (09:03→15:16)
[2021-03-20] MEDS: Famotidine 20 MG TABLET PO SCH ×2 (09:04→19:56)
[2021-03-21] MEDS: *HR* OxyCODONE Immed Rel 5 MG TABLET PO PRN ×4 (00:19→15:42)
[2021-03-21] MEDS: *HR* Heparin 5,000 UNIT/ML VIAL SQ SCH ×2 (05:31→15:42)
[2021-03-21] MEDS: Simethicone 80 MG TAB.CHEW PO PRN ×2 (05:32→15:41)
[2021-03-21 07:31] VITALS: BP 130/84; PULSE 68; RESP 18; TEMP 98.7; O2SAT 95
[2021-03-21] MEDS: Sennosides/Docusate Sodium TABLET PO SCH (09:59)
[2021-03-21] MEDS: Bumetanide 1 MG TABLET PO SCH ×2 (09:59→15:41)
[2021-03-21] MEDS: Gabapentin 300 MG CAPSULE PO SCH ×2 (09:59→15:42)
[2021-03-21] MEDS: Famotidine 20 MG TABLET PO SCH (09:59)
== END 2021-03-21 20:12 | disposition home health service (06) | DRG 193 ==
LOC: INPPIK 12-18 14:26
PROVIDERS: ADMIT Internal Medicine; ATTEND Internal Medicine